=== PATIENT | female | born 1950 | race Caucasian/White ===

== ENCOUNTER 2020-07-11 09:38 | Outpatient (CLI) | payer MEDICARE, SELFPAY ==
--- NOTE | 2020-07-11 09:45 | XR_ITS ---
WS: [id number] XR KUB [id number] REASON FOR EXAM: URETERAL STONE FINDINGS: Bowel gas pattern is unremarkable. No free air or retroperitoneal air. No urinary tract calculi are identified. No mass is noted. XR/XR KUB [id number] IMPRESSION: Unremarkable abdomen.
== END 2020-07-11 09:39 | disposition home or self-care (01) ==
PROVIDERS: PCP Electrodiagnostic Medicine; Visit Provider Urology
DX: N20.1 Calculus of ureter (principal)
CPT/HCPCS: 74018; 81003

== ENCOUNTER → 2021-04-07 12:10 | Outpatient (BNVA) | payer MEDICARE, SELFPAY | PROVIDERS: PCP Electrodiagnostic Medicine; Visit Provider Obstetrics & Gynecology | DX: N39.3 Stress incontinence (female) (male) (principal); Z20.822 Contact with and (suspected) exposure to COVID-19 | CPT/HCPCS: 87635 ==

== ENCOUNTER 2021-04-12 09:15 | Observation (INO) | payer MEDICARE, SELFPAY ==
[2021-04-07 12:50] VITALS: BMI 32.8
[2021-04-07 13:34] LABS: Hematocrit 48.4 % (37.0-47.0); Hemoglobin 15.6 g/dL (11.5-15.3); Mean Corpuscular HGB Conc 32.2 g/dL (30.0-36.0); Mean Corpuscular Hemoglobin 31.1 pg (28.0-34.0); Mean Corpuscular Volume 96.6 fl (81-99); Mean Platelet Volume 12.1 fL (7.4-10.4); Platelet Count 196 10^3/cmm (130-400); Red Blood Count 5.01 10^6/uL (4.1-5.3); Red Cell Distribution Width 12.9 % (12.1-15.1); White Blood Count 7.4 10^3/uL (4.0-10.0)
[2021-04-07 16:01] LABS: Absolute Eosinophils 0.1 10^3/cmm (0.0-0.7); Absolute Segmented Neutrophil 4.8 10/cmm (1.6-7.1); Band Neutrophils Absolute 0.1 10^3/cmm (0.0-1.2); Eosinophils 2 %; Lymphocytes 21 %; Monocytes Absolute 0.7 10^3/cmm (0.1-0.6); Platelet Estimate Normal (Normal); Segmented Neutrophils 65 %; Total Cells Counted 100 (0-100)
[2021-04-12] VITALS (14 sets, daily range): BP systolic 96–182; BP diastolic 44–65; PULSE 50–77; RESP 14–18; TEMP 36.1–36.6; O2SAT 94–100
[2021-04-12] MEDS: sodium chloride 0.9% 1,000 ML 30 ML IV (06:30)
--- NOTE | 2021-04-12 06:42 | ANES.PREANE2 ---
Pre-Anesthetic Assessment Pre-Anesthetic Assessment: Height/Weight: Height 1.63 m Weight 86.636 kg Temp Pulse Resp BP Pulse Ox 97.3 F L 50 L 16 132/55 97 04/12/21 06:15 04/12/21 06:15 04/12/21 06:15 04/12/21 06:15 04/12/21 06:15 Preop Diagnosis: Cystocele stage III with uterine prolapse Proposed Procedure: Operation Date: 04/12/21 07:00 Proposed Procedures p Total Vaginal Hysterectomy 26549 [id number] 85992 N81.10 N39.3(Not Applicable) - Carlos Mcfarlane MD s bilateral Salpingo-Oophorectomy (Vaginal)(Bilateral) - Carlos Mcfarlane MD s Anterior Repair Anterior Colporrhaphy(Not Applicable) - Carlos Mcfarlane MD s Midurethral single incision sling(Not Applicable) - Carlos Mcfarlane MD Familial anesthetic complications: None Was Beta Camron taken within 24 hours: Yes Was Clonidine taken within 24 hours: N/A Last intake: Intake Last Liquid Date 04/12/21 Last Liquid Time 23:00 Last Solid Date 04/11/21 Last Solid Time 19:30 Social: Social History: Tobacco and No alcohol Exam: Pre-Anes Outpt Exam: alert, oriented x 3, clear to auscultation bilaterally and regular rate & rhythm Airway: Cervical ROM: WNL MP: 4 Dentition: False Pulmonary: Pulmonary: COPD, Cough (smoker's cough) and Sleep apnea CV/HEM: CV/HEM: Afib and HTN Comments: echo 04/23 - EF 50%, no regional wallmotion abnormalities, MPI 2018 - no ischemia Metabolic: Metabolic: Morbid obesity Anesthetic Plan: ASA status: 3 Anesthesia: General Risk of > 500 ml blood loss (7ml/kg in children): No PFSH Anesthesia PFSH: Medical History (Updated 04/11/21 @ 14:48 by Carlos Mcfarlane MD) Atrial fibrillation EKG from 10/07/2019 revealed revealed sinus bradycardia with a rate of 45 bpm. [place]-Walker grade 3 cystocele Benign essential HTN Bradycardia Chest pain Congestive heart failure COPD (chronic obstructive pulmonary disease) Cystocele Hiatal hernia High risk medication use Recto-vaginal fistula Ureteral calculus Urinary, incontinence, stress female Urolithiasis Surgical History History of cardiac radiofrequency ablation History of cholecystectomy History of tubal ligation Hx of appendectomy Family History Grandfather Diabetes maternal Grandmother Diabetes maternal Stroke maternal Family/Other Diabetes maternal uncles Breast cancer maternal aunt, onset 40's Denies family history of Colon cancer Ovarian cancer Clotting disorder Hyperlipidemia Anesthesia complication Bleeding disorder Hypertension Uterine cancer Social History Smoking and tobacco status: current every day smoker cigarettes Packs smoked per day: 1 [ Other cigarette details: smoking over 50 years ] Alcohol intake: never Marital status: / Current occupational status: retired Data Anesthesia CBC & Chem 7: 04/07/21 13:05 Cardiac Studies: No Data to Display
[2021-04-12] MEDS: enoxaparin 40 mg/0.4 mL Syringe SUBCUT (06:45)
[2021-04-12] MEDS: scopolamine 1.5 Patch 1 PATCH TRANSDERMA (06:56)
--- NOTE | 2021-04-12 06:58 | W.PM.OPSUD ---
Surgery/Procedure H&P Update DATE OF PROCEDURE: April 12, 2021 DATE H&P PERFORMED: 04/07/21 H&P UPDATE INFORMATION: I have reviewed H&P completed within last 30 days, I have examined patient prior to procedure and No changes to prior documentation PREOP DIAGNOSIS: Cystocele stage III with uterine prolapse PLANNED PROCEDURE: Operation Date: 04/12/21 07:00 Proposed Procedures p Total Vaginal Hysterectomy 68842 [id number] N81.10 N39.3(Not Applicable) - Carlos Mcfarlane MD s bilateral Salpingo-Oophorectomy (Vaginal)(Bilateral) - Carlos Mfcarlane MD s Anterior Repair Anterior Colporrhaphy(Not Applicable) - Carlos Mcfarlane MD s Midurethral single incision sling(Not Applicable) - Carlos Mcfarlane MD
[2021-04-12] MEDS: ceFOXitin 2,000 MG in sodium chloride 0.9% (plus) 50 ML 100 MG IV (07:00)
[2021-04-12 07:13] LABS: Basophils # 0.1 10^3/uL (0.0-0.1); Basophils % 0.9 %; Eosinophils # 0.4 10^3/uL (0.0-0.8); Eosinophils % 4.8 %; Hematocrit 47.7 % (37.0-47.0); Hemoglobin 15.6 g/dL (11.5-15.3); Lymphocytes # 2.3 10^3/uL (0.8-4.8); Lymphocytes % 28.7 %; Mean Corpuscular HGB Conc 32.7 g/dL (30.0-36.0); Mean Corpuscular Volume 94.8 fl (81-99); Mean Platelet Volume 12.2 fL (7.4-10.4); Monocytes % 12.1 %; Neutrophils # 4.29 10^3/uL (1.8-7.7); Neutrophils % 52.9 %; Nucleated Red Blood Cells % 0 %; Platelet Count 197 10^3/cmm (130-400); Red Blood Count 5.03 10^6/uL (4.1-5.3); White Blood Count 8.1 10^3/uL (4.0-10.0)
[2021-04-12 07:24] LABS: Add Urine Culture? No; Add Urine Microscopic? YES; Bacteria Urine 1+ /hpf; Bilirubin Urine Neg (Negative); Blood Urine Neg (Negative); Glucose Urine UA Norm (Normal); Ketones Urine Negative (Negative); Leukocyte Esterase Urine Trace (Negative); Nitrate Urine Negative (Negative); Protein Urine Neg (Negative); Squamous Epithelial Cell Urine 15-25 /hpf (0-5); Urine Appearance Clear (CLEAR); Urine Color Yellow (Yellow); Urobilinogen Urine 1 mg/dL (Negative); pH Urine 5 (5-7)
[2021-04-12 07:36] LABS: Alanine Aminotransferase 18 U/L (0-33); Albumin Level 4.1 g/dL (3.5-5.2); Alkaline Phosphatase 85 IU/L (35-105); Anion Gap 17.4 (5-19); Aspartate Amino Transferase 18 U/L (0-32); Blood Urea Nitrogen 12 mg/dL (8-23); Calcium 9.1 mg/dL (8.5-10.5); Carbon Dioxide 24 mmol/L (22-29); Chloride 105 mmol/L (98-107); Glucose 113 mg/dL (65-115); Osmolality Calculated 295 mOsm/kg (285-295); Potassium 4.4 mmol/L (3.5-5.1); Sodium 142 mmol/L (136-145); Total Bilirubin 0.3 mg/dL (0.15-1.2); Total Protein 7.1 g/dL (6.6-8.7)
[2021-04-12] MEDS: estrogens Conjugated Cream 30 gm 1 APPLIC VAGINAL (08:07)
--- NOTE | 2021-04-12 09:07 | P.OP_ITS ---
Operative Report Date of procedure: April 12, 2021 Pre-op Diagnosis: Cystocele stage III with uterine prolapse Post-op diagnosis: same Procedure Done: Total vaginal hysterectomy Anterior colporrhaphy augmented with allograft Single incision mid urethral sling Cystoscopy Implants: Altis single incision mid urethral sling Pathology: Uterus Surgeon: Carlos Mcfarlane MD Anesthesia: General Estimated blood loss (mL): 25 IV fluids (mL): 700 Urine output (mL): 100 Complications: none Condition: stable Disposition: PACU Procedure: After informed consent and risks, benefits, indications and alternatives reviewed with the patient was taken to the operating room. The patient was placed in dorsal lithotomy position prepped, and draped in the usual sterile fashion. The pre-procedure timeout verifying the correct patient, procedure, site and side, could not requirements was performed and acknowledge by the OR team. A Suarez catheter was placed. A Bookwalter vaginal retractor was placed into the vagina in usual manner visualize the cervix. Cervix was grasped with a single tooth tenaculum and circumferentially infiltrated with 2% lidocaine with epinephrine. Then cervix was circumferentially incised with bovie and the bladder was dissected off the pubovesical cervical fascia anteriorly with a sponge stick and Metzenbaum scissors. The anterior peritoneal reflection was identified and the anterior cul-de-sac was entered sharply with Metzenbaum scissors. The same procedure was performed posteriorly and a posterior colpotomy was made through the posterior cul-de-sac space without difficulty and the posterior blade of the Bookwalter vaginal retractor was advanced posteriorly into the cul-de-sac. At this time, the left and right uterosacral ligaments were isolated and ligated with 2-0 Vicryl. The Enseal device was placed over the uterosacral ligaments on either side and was then used in a serial fashion up through the cardinal ligaments bilaterally cross-clamped, cut, and sealed with the Enseal device. Finally, the uterine arteries were cross-clamped, cut, sealed and ligated with the Enseal device. Hemostasis was assured. The broad ligaments were then serially clamped, sealed and cut with the Enseal device on both sides. Excellent hemostasis was visualized. Both cornua were clamped, sealed and cut with the Enseal device. Then the pedicles were then suture ligated with excellent hemostasis. The uterus was excised and submitted for pathologic evaluation. The right ovary was identified, grasp with anu the infudibulopelvic ligament was clampped, sealed and cut with the Enseal device and the right ovary was exiced. Good hemostasis was noted. The same was performed with the left ovary without complications. No other abnormalities were noted in the pelvic cavity. The peritoneum was then closed in a pursestring fashion with 0 Vicryl suture. The vaginal cuff angles were closed with [id number] #0 Vicryl suture on both sides and transfixed with the ipsilateral cardinal and uterosacral ligaments. The remainder of the vaginal cuff was closed with 2-0 Vicryl in a running locked fashion. Then proceeded to perform the anterior colporrhaphy and single incision midurethral sling.. A vertical midline incision was made beneath the midurethra, nearly 1.5 cm length. Careful submucosal dissection was performed bilaterally up to the interior portion of the inferior pubic ramus. The insertion of adductor longus tendon on the patient?s pubic ramus was identified as reference land mallory. Palpated the notch along the internal edge of ischiopubic ramus where the adductor longus tendon and the inferior pubic ramus meet. The needle of the SIS inserted aiming at the location of this notch. One of the integrated self- fixating tips place onto the needle by sliding it over the end of the needle. The needle/sling assembly was inserted toward the location of identified reference notch making sure that the flat of the handle is perpendicular to the desired path. The needle was tracked along the posterior surface of the ischiopubic ramus until the midline mallory on the mesh is approximately at the midline position under the urethra. The needle was removed and the same was repeated on the contralateral side until the appropriate sling tension under the urethra was achieved ensuring that the mesh lays flat. The needle was removed and vaginal incision was closed in a running interlocking fashion with 2-0 Vicryl. Then the vaginal mucosa was then injected in the midline with normal saline. The vaginal mucosa was scored in the midline with the Bovie approximately 1 cm medial to the urethral meatus to 1 cm distal to the vaginal cuff. This vaginal mucosa was then undermined and then incised in the midline with the Metzenbaum scissors. The lateral aspects of the vaginal mucosa were then grasped with the Allis clamps and the vaginal mucosa was then dissected off the underlying fascia with the Metzenbaum scissors. Again, there was noted to be quite a bit of oozing at the incision, which was controlled with cautery. After adequate dissection was performed, bilaterally. A Coloplast allograft was modified at time of application to fit spacea, 3 x 3 cm piece . The allograft was placed in front of cystocele ready to be implanted and was suture is placed at distal end of graft and placed towards vaginal cuff. Final suture is placed on proximal portion of the graft to complete the placement overlying the bladder. Then Interrupted vertical mattress sutures of 0 Vicryl were used to elevate the cystocele superiorly. The excessive vaginal mucosa was then trimmed with the Metzenbaum scissors and the vaginal mucosa was then reapproximated in the running interlocking fashion with 2-0 Vicryl. Then the Suarez catheter was removed and cystoscope was inserted. The bladder was filled with sterile water. Complete evaluation of the bladder mucosa was performed noting no lacerations, dimpling, tears, bleeding of the mucosa or muscular layers. Both ureteral orifices were identified. Prompt excretion of u rine from both ureteral orifices was noted. Cystoscope was withdrawn. Suarez catheter was then placed yielding clear nohemi urine. A vaginal packing with Premarin cream was placed and the patient was taken out of dorsal lithotomy position and awakened from the general anesthesia. The patient tolerated the procedure well and was taken to the PACU recovery room in a stable condition. Sponge, lap, needle and instruments counts were correct x3.
--- NOTE | 2021-04-12 09:32 | P.PCN_ITS ---
PACU note PACU note: VSS, Good respiratory effort, report to SPANISHER Post-Anesthesia Exam: awake
--- NOTE | 2021-04-12 09:32 | PM.PACU ---
PACU note PACU note: VSS, Good respiratory effort, report to SECURITY OFFICER SUPERVISOR Post-Anesthesia Exam: awake
[2021-04-12] MEDS: HYDROcodone-acetaminophen 5-325 mg Tablet PO ×2 (10:39→16:41)
[2021-04-12] MEDS: dextrose 5%-lactated ringers 1,000 ML 125 ML IV (10:40)
--- NOTE | 2021-04-12 14:00 | ANE.PACU2 ---
Inpatient post-anesthesia follow up: Airway intact: Yes Vital signs: Temperature 97.0 F Pulse Rate 58 Respiratory Rate 18 Blood Pressure 147/65 Pulse Oximetry 94 Oxygen Delivery Me thod Room Air Oxygen Flow Rate 6 Fraction of Inspir ed Oxygen Hydration adequate: Yes Nausea and vomiting: No Pain level: 1 Mental status: Baseline
[2021-04-12] MEDS: docusate sodium 100 mg Capsule PO (18:18)
[2021-04-12] MEDS: metoprolol tartrate 25 mg Tablet 37.5 MG PO (18:19)
[2021-04-13 05:15] LABS: Hematocrit 39.8 % (37.0-47.0); Hemoglobin 12.7 g/dL (11.5-15.3); Mean Corpuscular HGB Conc 31.9 g/dL (30.0-36.0); Mean Corpuscular Hemoglobin 30.5 pg (28.0-34.0); Mean Corpuscular Volume 95.7 fl (81-99); Platelet Count 167 10^3/cmm (130-400); Red Blood Count 4.16 10^6/uL (4.1-5.3); Red Cell Distribution Width 12.8 % (12.1-15.1); White Blood Count 13.8 10^3/uL (4.0-10.0)
[2021-04-13 05:16] VITALS: BP 176/64; PULSE 58; RESP 16; TEMP 36.4
--- NOTE | 2021-04-13 10:55 | PM.OBGYDC ---
Discharge Providers QUALITY MEASUREMENT SPECIALIST Date of Admission: 04/12/21 09:15 Date of Discharge: 04/13/21 Attending Provider at Admission: Carlos Mcfarlane MD Attending Provider at Discharge: Carlos Mcfarlane MD Primary Care Provider: Malachi Haque DO Diagnoses at Discharge Discharge Diagnosis (1) Status post vaginal hysterectomy: Status: Acute Reason for Visit Reason for Visit: the [facility] Hospital Course Hospital Course Mrs. Roberts 70-year-old female with a cystocele stage III with uterine prolapse was admitted for planned total vaginal hysterectomy, anterior colporrhaphy augmented with allograft and single incision mid urethral sling. The procedures were performed without complications. Overnight observation uneventful. Postop day 1 she is afebrile and hemodynamically stable. Tolerating diet well. Passing flatus, ambulating without difficulty. PVR within normal limits. Physical Exam Narrative: EXAM NARRATIVE: GA: Alert and oriented ?3. HEENT: WNL. Heart: Regular rate and rhythm. Lungs: Clear to auscultation bilaterally. Abdomen: Bowel sounds present, nontender. COOLING SYSTEM OPERATOR: sotting bleeding. Extremities: No edema, no cyanosis, no calves pain. Urinary Catheter Management^: Suarez: Cath Placed During This Visit: yes, but has since been removed by the nurse Reason for Continuing Indwelling Catheter: Decision to DC Catheter Urinary Catheter Date of Insertion: 04/12/21 Urinary Catheter Time of Insertion: 07:31 Date Urinary Catheter Removed: 04/13/21 Time Urinary Catheter Discontinued: 05:09 Discharge Data Data Completed and Pending: Pending at discharge Category Date Time Status Retype for Patiisatu s ABO/Rh Routine Lab 04/12/21 07:49 Received Pathology: Surgic al [PTH] Routine Pth 04/12/21 08:56 Received Labs from last 24 hours 04/13/21 05:05 WBC 13.8 H RBC 4.16 Hgb 12.7 Hct 39.8 MCV 95.7 MCH 30.5 MCHC 31.9 RDW 12.8 Plt Count 167 MPV 12.0 H Vitals: Last Vital Signs Temp 97.6 F 04/13/21 05:16 Pulse 58 L 04/13/21 05:16 Resp 16 04/13/21 05:16 BP 176/64 04/13/21 05:16 Pulse Ox 95 04/12/21 17:16 Discharge Plan Discharge Patient Disposition: Home Condition: Stable Prescriptions: New ibuprofen 800 mg tablet 800 mg PO TID PRN (Reason: pain) Qty: 60 RF: 0 acetaminophen 325 mg capsule 325 mg PO Q4H PRN (Reason: fever or pain) Qty: 60 RF: 0 Continued Breo Ellipta 100-25 mcg/dose blister with device 1 inh inhalation DAILY RF: 0 Eliquis 5 mg tablet 5 mg PO BID RF: 0 loratadine [Claritin] 10 mg tablet 10 mg PO DAILY RF: 0 cholecalciferol (vitamin D3) [D3-50 Cholecalciferol] 1,250 mcg (50,000 unit) capsule 1,250 mcg PO .twice a week RF: 0 sertraline 25 mg tablet 50 mg PO DAILY RF: 0 ascorbate calcium (vitamin C) 500 mg tablet 1 g PO DAILY RF: 0 Adult 50 Plus Probiotic 4 billion cell capsule 4,000 mmu cells PO DAILY RF: 0 vitamin B complex-vit B12 1,200 mcg/mL drops 1 drp sublingual DAILY RF: 0 dietary supplement Capsule See Rx Instructions PO .COMPLEX RF: 0 losartan 50 mg tablet 50 mg PO DAILY Qty: 90 RF: 3 enoxaparin [Lovenox] 40 mg/0.4 mL syringe 40 mg SUBCUT .COMPLEX Qty: 0.4 RF: 5 metoprolol tartrate 25 mg tablet See Rx Instructions .ROUTE .COMPLEX Qty: 270 RF: 3 Discharge Orders: Discharge Order (Routine); Ordered 04/13/21 Ordered By: Carlos Mcfarlane Referrals: Carlos Mcfarlane MD [Physician] - 2 weeks Discharge Diet: Usual diet Discharge Activity: Increase activity as tolerated Patient Instructions: Vaginal Hysterectomy (DC), Anterior Vaginal Repair (DC), Bladder Sling Procedures (DC), OB Discharge Report, OB Laproscopic Surgery - [facility], Opioid Safety Activity Restrictions/Additional Instructions: 1. Please call [facility] on next working day to make your post-operative appointment in 2 weeks. 2. Please stay home until you come back to the clinic on first post-operative check up. 3. Please follow instructions on your medications CAREFULLY. 4. If you have abdominal incision, do not cover it unless dressing is necessary because of drainage. OK to shower, but avoid bath. Leave steri-strips until they fall off. If they are still on one week after surgery, you may remove them. 5. If you had vaginal surgery or vaginal repair, Dr. Mcfarlane may instruct you to take SITZ bath. 6. Yellow, blood tinged odorous vaginal discharge is usually normal after hysterectomy or vaginal surgeries. 7. No sexual intercourse, tampons, or douches until you are completely released from the post-operative care. 8. Avoid constipation by eating right and maybe using some Metamucil or Milk of Magnesia. 9. All prescription refills are given during the working hours. Please do no wait till it runs out. Call the clinic at [phone] before your medication runs out. The clinic will get in touch with your doctor to prescribe medications if necessary. 10. Please remain within 40 mile radius from our hospital because emergencies do happen now and then during the post-operative period. 11. If you have stairs at home, take one step at a time slowly and minimize the number of trips. It helps to stay in one floor for the next few days. No lifting except what you can lift by one hand until you are released from the post-operative care. 12. Driving is discouraged until you are well healed. It may be 3-4 weeks before you feel strong enough to drive. You should be able to turn and look through the rear window without pain and you should be able to push the brake pedal very hard without pain before you drive. No fast rules, but SAFETY should be your primary concern. DO NOT drive if you are on sedating medications such as narcotics. 13. Call the clinic (during working hours) to make urgent appointment or go to the Emergency room, if any of the following occurs: i. Vaginal bleeding becomes heavy, more than a period. ii. Incision becomes red and sore, or drains pus. iii. Your temperature is over 100.4 or you have chill. iv. IV site becomes red and swollen (a little ``knot?? is usually OK) v. Persistent nausea and vomiting vi. Persistent constipation or diarrhea vii. Rash or allergic reaction to medications. Discharge Attestations QUALITY MEASUREMENT SPECIALIST Time Spent in Discharge Care*: greater than 30 min Coding Level of Care Code Acute In Flight Refueling Manager for Thaddeus Juarez Diagnoses Status post vaginal hysterectomy Z90.710
[2021-04-13 11:15] VITALS: BP 134/51; PULSE 56; RESP 17; TEMP 36.5; O2SAT 98
--- NOTE | 2021-04-14 18:16 | PC.RESP ---
SMOKING CESSATION AND PULMONARY REHAB INFORMATION SENT TO PATIENT.
== END 2021-04-13 11:15 | disposition home or self-care (01) ==
LOC: OBGYN 09:16
PROVIDERS: Admitting Provider Obstetrics & Gynecology; PCP Electrodiagnostic Medicine; Visit Provider Obstetrics & Gynecology
PROC: (CPT 57240; principal; 2021-04-12 07:00)
PROC: 0JQC0ZZ Repair Pelvic Region Subcutaneous Tissue and Fascia, Open Approach (ICD-10-PCS; CPT 57240; 2021-04-12 07:00)
PROC: (CPT 57288; 2021-04-12 07:00)
PROC: 0TJB8ZZ Inspection of Bladder, Via Natural or Artificial Opening Endoscopic (ICD-10-PCS; CPT 52000; 2021-04-12 07:00)
DX: N81.4 Uterovaginal prolapse, unspecified (principal); J44.9 Chronic obstructive pulmonary disease, unspecified; G47.30 Sleep apnea, unspecified; I48.91 Unspecified atrial fibrillation; E66.01 Morbid (severe) obesity due to excess calories; Z68.32 Body mass index [BMI] 32.0-32.9, adult; I11.0 Hypertensive heart disease with heart failure; I50.9 Heart failure, unspecified; F17.210 Nicotine dependence, cigarettes, uncomplicated
CPT/HCPCS: 57240; 57288; 58260; 36415; 51798; 80053; 81001; 85007; 85025; 85027; 86850; 86900; 88305; 96365; 96372; C1713; C1762; G0378; J0694; J1100; J1650; J1885; J1940; J2405; J2704; J2710; J3010; J3490; J7030; Q9968

== ENCOUNTER → 2022-01-31 15:44 | Outpatient (BNVA) | payer MEDICARE, SELFPAY | PROVIDERS: PCP Electrodiagnostic Medicine; Visit Provider Internal Medicine Cardiovascular Disease | DX: I11.0 Hypertensive heart disease with heart failure (principal); I50.31 Acute diastolic (congestive) heart failure; M79.606 Pain in leg, unspecified; I48.19 Other persistent atrial fibrillation; R09.89 Other specified symptoms and signs involving the circulatory and respiratory systems; F17.210 Nicotine dependence, cigarettes, uncomplicated; Z79.01 Long term (current) use of anticoagulants | CPT/HCPCS: 99214 ==

== ENCOUNTER 2022-05-02 17:10 | Outpatient (CLI) | payer MEDICARE, SELFPAY ==
--- NOTE | 2022-05-02 17:15 | USCV_ITS ---
Priyanka Roberts Age: 71 Gender: F : 1950 Exam Date: 05/02/2022 17:22 Ordering Phys: Soren Duong MD ([email or web address]) Technologist: LALO [place] [facility] [place]: CAROTID BRUIT Risk Factors: Previous Vascular Surgery: Right Brachial BP: / Left Brachial BP: / Right Left Velocity (cm/s) Spectral Plaque Velocity (cm/s) Spectral Plaque Syst/Diast Broadening Syst/Diast Broadening 100.80/12.00 Prox CCA 84.60 / 15.40 76.90/ 11.70 Mid CCA 61.50 / 9.40 61.40/ 15.50 Distal CCA 70.10 / 15.40 71.50/ 18.60 Prox ICA 101.20/ 28.90 47.30/ 13.10 Mid ICA 79.20 / 17.10 54.60/ 15.10 Distal ICA 101.00/ 21.00 97.10 ECA 156.40 0.71 ICA/CCA 1.20 Vertebral 54.60/ 12.50 cm/s 44.00/ 8.50 cm/s Subclavian 266.1 219.6 0 0 FINDINGS Comparison: none available. No significant elevation of systolic or diastolic velocities. Waveforms are normal. Mild atherosclerotic plaque in the bifurcations. Antegrade vertebral arteries. CONCLUSIONS Bilateral ICA stenosis less than 50%. Mild carotid atherosclerosis. Dr. Dior Armenta DO (Electronically Signed) Final Date: 03 May 2022 07:42 S
== END 2022-05-02 17:11 | disposition home or self-care (01) ==
LOC: RAD 17:14
PROVIDERS: PCP Electrodiagnostic Medicine; Visit Provider Internal Medicine Cardiovascular Disease
DX: I65.23 Occlusion and stenosis of bilateral carotid arteries (principal); M79.669 Pain in unspecified lower leg
CPT/HCPCS: 93880

== ENCOUNTER 2022-05-08 11:53 | Outpatient (CLI) | payer MEDICARE, SELFPAY ==
--- NOTE | 2022-05-08 12:00 | USCV_ITS ---
Priyanka Roberts Age: 71 Gender: F : 1950 Exam Date: 05/08/2022 12:22 Ordering Phys: Soren Duong MD ([email or web address]) Technologist: SABIHA [facility] [place] Indication: Numbness big toes Risk Factors: Smoker Previous Vascular Surgery: None RIGHT LEFT BP: 132.0 / 62.00 BP: 144.0/ 54.00 0 0 Waveform Velocity (cm/s) Velocity (cm/s) Waveform Biphasic 117.1 Iliac Prox 66.1 Monophasic Biphasic 97.4 Iliac Mid 75.3 Monophasic Biphasic 147.4 Iliac Distal 68.7 Monophasic Biphasic 93.9 PROFILE TRIMMER 76.7 Monophasic Biphasic 93.9 SFA Prox 50.2 Monophasic Biphasic SFA Mid Monophasic 86.3 58.9 Biphasic 69.2 SFA Dist 49.4 Monophasic Biphasic 64.5 POP 58.1 Monophasic Monophasic 75.3 DIAL SCREW ASSEMBLER 28.3 Monophasic Monophasic 66.1 DPA 21.8 Monophasic 0.8 SHREYA 0.4 FINDINGS rt dpa 90 rt vessel captain 110 ltdpa 40 lt vessel captain 60 Mild to moderate diffuse plaques in the SFA on the right side. Resting SHREYA of 0.8 on the right side. Mild to moderate diffuse plaque in the SFA and popliteal artery on the left side. Resting SHREYA of 0.4 on the left side CONCLUSIONS Abnormal resting SHREYA 0.4 on the left side, suggesting severe peripheral artery disease, possibly at the aortoiliac level. Minimally diminished resting SHREYA 0.8 on the right side, suggesting mild peripheral artery disease. No similar previous studies are available for comparison Dr Soren Duong MD [facility] (Electronically Signed) Final Date: 08 May 2022 13:56 S
== END 2022-05-08 11:54 | disposition home or self-care (01) ==
PROVIDERS: PCP Electrodiagnostic Medicine; Visit Provider Internal Medicine Cardiovascular Disease
DX: M79.604 Pain in right leg (principal); M79.605 Pain in left leg; R20.0 Anesthesia of skin; F17.210 Nicotine dependence, cigarettes, uncomplicated
CPT/HCPCS: 93925

== ENCOUNTER → 2022-09-13 14:00 | Outpatient (BNVA) | payer MEDICARE, SELFPAY | PROVIDERS: PCP Electrodiagnostic Medicine; Visit Provider Internal Medicine Cardiovascular Disease | DX: I77.9 Disorder of arteries and arterioles, unspecified (principal); I48.19 Other persistent atrial fibrillation; I11.0 Hypertensive heart disease with heart failure; I50.31 Acute diastolic (congestive) heart failure; Z79.899 Other long term (current) drug therapy; F17.210 Nicotine dependence, cigarettes, uncomplicated | CPT/HCPCS: 99214 ==

== ENCOUNTER 2022-10-03 17:10 | Emergency (ER) | payer MEDICARE, SELFPAY ==
[2022-10-03 17:34] VITALS: BP 128/65; PULSE 67; RESP 20; TEMP 36.9; O2SAT 96; BMI 30.9
[2022-10-03 18:36] LABS: Basophils # 0.1 10^3/uL (0.0-0.1); Basophils % 0.7 %; Eosinophils # 0.2 10^3/uL (0.0-0.8); Eosinophils % 2.5 %; Hematocrit 42.8 % (37.0-47.0); Hemoglobin 13.7 g/dL (11.5-15.3); Lymphocytes # 1.6 10^3/uL (0.8-4.8); Lymphocytes % 18.8 %; Mean Corpuscular Hemoglobin 29.8 pg (28.0-34.0); Mean Corpuscular Volume 93.2 fl (81-99); Mean Platelet Volume 11.7 fL (7.4-10.4); Monocytes # 0.9 10^3/uL (0.2-0.9); Monocytes % 10.3 %; Neutrophils % 67.1 %; Nucleated Red Blood Cells % 0 %; Platelet Count 249 10^3/cmm (130-400); Red Blood Count 4.59 10^6/uL (4.1-5.3); Red Cell Distribution Width 13.8 % (12.1-15.1); White Blood Count 8.7 10^3/uL (4.0-10.0)
[2022-10-03 18:57] LABS: Alanine Aminotransferase 16 U/L (0-33); Albumin Level 4.4 g/dL (3.5-5.2); Alkaline Phosphatase 89 U/L (35-105); Anion Gap 17.3 (5-19); Aspartate Amino Transferase 18 U/L (0-32); Blood Urea Nitrogen 17 mg/dL (8-23); Calcium 9.6 mg/dL (8.5-10.5); Carbon Dioxide 24 mmol/L (22-29); Chloride 105 mmol/L (98-107); Creatinine Clr Calc Pharmacy 63.7736; Globulin 2.5 g/dL (1.3-4.6); Glucose 120 mg/dL (65-115); Lipase 21 U/L (13-60); Osmolality Calculated 297 mOsm/kg (285-295); Potassium 4.3 mmol/L (3.5-5.1); Sodium 142 mmol/L (136-145); Total Bilirubin 0.2 mg/dL (0.15-1.2); Total Protein 6.9 g/dL (6.6-8.7)
--- NOTE | 2022-10-03 20:38 | CTR_ITS ---
PROCEDURE INFORMATION: Exam: CT Abdomen And Pelvis Without Contrast Exam date and time: 10/03/2022 9:28 PM Age: 72 years old Clinical indication: Abdominal pain; Acute; Prior surgery; Surgery date: 6+ months; Surgery type: Dorcas, tubal, appx TECHNIQUE: Imaging protocol: Computed tomography of the abdomen and pelvis without contrast. Radiation optimization: All CT scans at this facility use at least one of these dose optimization techniques: automated exposure control; mA and/or kV adjustment per patient size (includes targeted exams where dose is matched to clinical indication); or iterative reconstruction. REPORTING DATA: Count of CT and Cardiac NM exams in prior 12 months: This patient has received 0 known CTs and 0 known cardiac nuclear medicine studies in the 12 months prior to the current study. COMPARISON: CT kidney stone [id number] 05/31/2019 5:38 AM RADIATION DOSE METRICS: Total DLP (mGy-cm): 739.25 FINDINGS: Liver: Normal. No mass. Gallbladder and bile ducts: Cholecystectomy. Pancreas: Normal. No ductal dilation. Spleen: Normal. No splenomegaly. Adrenal glands: Right adrenal 16 mm low-density nodule suggestive of a benign adenoma. Kidneys and ureters: Left kidney punctate benign parenchymal calcification. Stomach and bowel: Prominent fluid-filled loops of bowel in the right abdomen with possible wall thickening, perhaps reflecting an enteritis in the appropriate clinical setting. Diverticulosis without diverticulitis. Appendix: No evidence of appendicitis. Intraperitoneal space: Unremarkable. No free air. No significant fluid collection. Vasculature: Unremarkable. No abdominal aortic aneurysm. Lymph nodes: Unremarkable. No enlarged lymph nodes. Urinary bladder: Unremarkable as visualized. Reproductive: Unremarkable as visualized. Bones/joints: Unremarkable. No acute fracture. Soft tissues: Unremarkable. CT/CT kidney stone [id number] IMPRESSION: 1. Prominent fluid-filled loops of bowel in the right abdomen with possible wall thickening, perhaps reflecting an enteritis in the appropriate clinical setting. 2. Cholecystectomy. 3. Right adrenal 16 mm low-density nodule suggestive of a benign adenoma. 4. Left kidney punctate benign parenchymal calcification. 5. Diverticulosis without diverticulitis. COMMENTS: Consistent with the [employer]'s Incidental Findings Committee white paper (J Am Desirae Radiol 2017): For any incidental adrenal lesion greater than or equal to 1 cm but less than or equal to 4 cm classified in this report as benign, likely benign, or containing fat (including classification as an adenoma or myelolipoma), no follow-up imaging is recommended per consensus recommendations based on imaging criteria. Further lab evaluation could be pursued if warranted based on clinical findings.
--- NOTE | 2022-10-03 20:39 | W.ED.ABDPA2 ---
HPI - Abdominal Pain General: Chief Complaint: Abdominal Pain Stated Complaint: rt l back pain Time Seen by Provider: 10/03/22 20:04 Source: patient Mode of arrival: ambulatory Limitations: no limitations History of Present Illness: 72-year-old female states she been having back pain has been intermittent over the last 3 days she states that she is waves of pain that will be sharp and severe in nature and then resolved states her pain is currently improved states she has had kidney stones she is concerned about a kidney stone or she states she could be having muscle spasms denies any fever denies any dysuria denies any lower extremity weakness. Associated Symptoms: Denies chills, diarrhea, fever(s), nausea and vomiting Review of Systems Const: Denies: fever(s), chills, body aches or change in appetite Eyes: Denies: blurry vision or eye discomfort ENMT: Denies: throat pain or dental pain Card: Denies: chest pain Resp: Denies: dyspnea GI: Denies: abdominal pain, nausea, vomiting or diarrhea : Reports: flank pain Musc: Denies: neck pain or back pain Skin/Breast: Denies: rash Neuro: Denies: headache(s) Psych: Denies: depression Sánchez/Lymph: Denies: easy bruising All/Imm: Denies: urticaria PFSH ED PFSH: Medical History Atrial fibrillation EKG from 10/07/2019 revealed revealed sinus bradycardia with a rate of 45 bpm. [place]-Walker grade 3 cystocele Benign essential HTN Bradycardia Chest pain Congestive heart failure COPD (chronic obstructive pulmonary disease) Cystocele Hiatal hernia High risk medication use Recto-vaginal fistula Ureteral calculus Urinary, incontinence, stress female Urolithiasis Surgical History History of cardiac radiofrequency ablation History of cholecystectomy History of tubal ligation Hx of appendectomy Family History Grandfather Diabetes maternal Grandmother Diabetes maternal Stroke maternal Family/Other Diabetes maternal uncles Breast cancer maternal aunt, onset 40's Denies family history of Colon cancer Ovarian cancer Clotting disorder Hyperlipidemia Anesthesia complication Bleeding disorder Hypertension Uterine cancer Social History Smoking and tobacco status: current every day smoker cigarettes Packs smoked per day: 1 [ Other cigarette details: smoking over 50 years] Alcohol intake: never Marital status: / Physical Exam Const: COMMON NORMALS: no acute distress, patient oriented x3 and healthy appearing HENMT: COMMON NORMALS: normocephalic and atraumatic HEAD & SCALP: normocephalic and atraumatic Eye: COMMON NORMALS: Equal, round and reactive pupils present and EOMs intact bilaterally PUPIL: Yes Equal, round and reactive pupils present Neck/C-Spine: COMMON NORMALS: full ROM and supple Chest: COMMONS NORMALS: normal inspection of the chest and normal palpation of entire chest wall Resp: COMMON NORMALS: normal respiratory effort, No retractions, No use of accessory muscles and clear to auscultation bilaterally AUSCULTATION: clear to auscultation bilaterally Cardio: COMMON NORMALS: regular rate, regular rhythm and No murmurs present (Cardio) RATE: regular rate RHYTHM: regular rhythm GI: COMMON NORMALS: Normal to inspection, nondistended, normoactive bowel sounds present, Soft to palpation, non-tender and no masses PALPATION: Yes Soft to palpation Extremity: COMMON NORMALS: normal to inspection and full ROM Neuro: COMMON NORMALS: patient oriented x3, moves all extremities and no focal motor deficits Psych: COMMON NORMALS: mental status grossly normal, Normal thought process present and cooperative THOUGHT PROCESS: Normal thought process present Skin: COMMON NORMALS: no rashes or lesions noted and no wounds GENERAL SKIN EXAM: no rashes or lesions noted Course Vital Signs: Vital signs: Vital Signs Temperature 98.4 F 10/03/22 17:34 Pulse Rate 75 10/03/22 21:16 Respiratory Rate 18 10/03/22 21:19 Blood Pressure 186/72 10/03/22 21:16 Pulse Oximetry 100 10/03/22 21:19 Oxygen Delivery Me thod 10/03/22 21:16 MDM - Abdominal Pain Medical Decision Making Patient presents for some back pain could be muscle spasms could be some pain from her enteritis is seen on CT scan no kidney stone her blood work here is normal urinalysis is normal she is well-appearing here she is stable for discharge she is to follow-up with PCP and return if worsening. Lab Data 10/03/22 18:15 10/03/22 18:15 Labs/Radiology: Radiology Impressions Abdomen/Pelvis CT 10/03/22 20:38 IMPRESSION: 1. Prominent fluid-filled loops of bowel in the right abdomen with possible wall thickening, perhaps reflecting an enteritis in the appropriate clinical setting. 2. Cholecystectomy. 3. Right adrenal 16 mm low-density nodule suggestive of a benign adenoma. 4. Left kidney punctate benign parenchymal calcification. 5. Diverticulosis without diverticulitis. COMMENTS: Consistent with the [place] [employer]'s Incidental Findings Committee white paper (J Am Desirae Radiol 2017): For any incidental adrenal lesion greater than or equal to 1 cm but less than or equal to 4 cm classified in this report as benign, likely benign, or containing fat (including classification as an adenoma or myelolipoma), no follow-up imaging is recommended per consensus recommendations based on imaging criteria. Further lab evaluation could be pursued if warranted based on clinical findings. Laboratory Results WBC 8.7 10^3/uL (4.0-10.0) 10/03/22 18:15 RBC 4.59 10^6/uL (4.1-5.3) 10/03/22 18:15 Hgb 13.7 g/dL (11.5-15.3) 10/03/22 18:15 Hct 42.8 % (37.0-47.0) 10/03/22 18:15 MCV 93.2 fl (81-99) 10/03/22 18:15 MCH 29.8 pg (28.0-34.0) 10/03/22 18:15 MCHC 32.0 g/dL (30.0-36.0) 10/03/22 18:15 RDW 13.8 % (12.1-15.1) 10/03/22 18:15 Plt Count 249 10^3/cmm (130-400) 10/03/22 18:15 MPV 11.7 fL (7.4-10.4) H 10/03/22 18:15 Neut % (Auto) 67.1 % 10/03/22 18:15 Lymph % (Auto) 18.8 % 10/03/22 18:15 [place] % (Auto) 10.3 % 10/03/22 18:15 Eos % (Auto) 2.5 % 10/03/22 18:15 Baso % (Auto) 0.7 % 10/03/22 18:15 Neut # (Auto) 5.80 10^3/uL (1.8-7.7) 10/03/22 18:15 Lymph # (Auto) 1.6 10^3/uL (0.8-4.8) 10/03/22 18:15 [place] # (Auto) 0.9 10^3/uL (0.2-0.9) 10/03/22 18:15 Eos # (Auto) 0.2 10^3/uL (0.0-0.8) 10/03/22 18:15 Baso # (Auto) 0.1 10^3/uL (0.0-0.1) 10/03/22 18:15 Nucleated RBC % (auto) 0 % 10/03/22 18:15 Nucleated RBCs # 0.0 /100WBC 10/03/22 18:15 PT 15.10 SECONDS (12.1-14.9) H 10/03/22 18:14 INR 1.15 (0.8-1.2) 10/03/22 18:14 Sodium 142 mmol/L (136-145) 10/03/22 18:15 Potassium 4.3 mmol/L (3.5-5.1) 10/03/22 18:15 Chloride 105 mmol/L (98-107) 10/03/22 18:15 Carbon Dioxide 24 mmol/L (22-29) 10/03/22 18:15 Anion Gap 17.3 (5-19) 10/03/22 18:15 BUN 17 mg/dL (8-23) 10/03/22 18:15 Creatinine 0.8 mg/dL (0.5-0.9) 10/03/22 18:15 GFR Calculation Not Reportable 10/03/22 18:15 Glucose 120 mg/dL (65-115) H 10/03/22 18:15 Calculated Osmolality 297 mOsm/kg (285-295) H 10/03/22 18:15 Calcium 9.6 mg/dL (8.5-10.5) 10/03/22 18:15 Total Bilirubin 0.2 mg/dL (0.15-1.2) 10/03/22 18:15 AST 18 U/L (0-32) 10/03/22 18:15 ALT 16 U/L (0-33) 10/03/22 18:15 Alkaline Phosphatase 89 U/L (35-105) 10/03/22 18:15 Total Protein 6.9 g/dL (6.6-8.7) 10/03/22 18:15 Albumin 4.4 g/dL (3.5-5.2) 10/03/22 18:15 Globulin 2.5 g/dL (1.3-4.6) 10/03/22 18:15 Lipase 21 U/L (13-60) 10/03/22 18:15 Urine Color Yellow (Yellow) 10/03/22 21:27 Urine Appearance Clear (CLEAR) 10/03/22 21:27 Urine pH 5 (5-7) 10/03/22 21:27 Ur Specific [place] 1.025 (1.005-1.030) 10/03/22 21:27 Urine Protein Neg (Negative) 10/03/22 21:27 Urine Glucose (UA) Norm (Normal) 10/03/22 21:27 Urine Ketones Negative (Negative) 10/03/22 21:27 Urine Blood Neg (Negative) 10/03/22 21:27 Urine Nitrate Negative (Negative) 10/03/22 21:27 Urine Bilirubin Neg (Negative) 10/03/22 21:27 Urine Urobilinogen Norm mg/dL (Negative) 10/03/22 21:27 Ur Leukocyte Esterase Negative (Negative) 10/03/22 21:27 Discharge Plan Discharge Patient Disposition: Home Clinical Impression: Abdominal pain Condition: Stable Prescriptions: New hydrocodone-acetaminophen 5-325 mg tablet 1 tab PO Q6H PRN (Reason: pain) Qty: 14 0RF ondansetron 4 mg tablet,disintegrating 4 mg PO Q6H PRN (Reason: nausea and vomiting) Qty: 14 0RF No Action Breo Ellipta 100-25 mcg/dose blister with device 1 inh inhalation DAILY Eliquis 5 mg tablet 5 mg PO BID loratadine [Claritin] 10 mg tablet 10 mg PO DAILY sertraline 25 mg tablet 50 mg PO DAILY cholecalciferol (vitamin D3) [D3-50 Cholecalciferol] 1,250 mcg (50,000 unit) capsule 1,250 mcg PO DAILY ascorbate calcium (vitamin C) 500 mg tablet 1 g PO DAILY Adult 50 Plus Probiotic 4 billion cell capsule 4,000 mmu cells PO DAILY Rx Instructions: administer with a meal albuterol sulfate 90 mcg/actuation HFA aerosol inhaler inhalation vitamin B complex-vit B12 1,200 mcg/mL drops 1 drp sublingual DAILY cilostazol 100 mg tablet 100 mg PO BID Qty: 180 3RF metoprolol tartrate 25 mg tablet 37.5 mg PO BID Qty: 270 3RF losartan 50 mg tablet 50 mg PO DAILY Qty: 90 3RF Rx Instructions: Dose reduced; unable to tolerate 100mg ibuprofen 800 mg tablet 800 mg PO TID PRN (Reason: pain) Qty: 60 0RF acetaminophen 325 mg capsule 325 mg PO Q4H PRN (Reason: fever or pain) Qty: 60 0RF Discharge Orders: Discharge ED (Routine); Ordered 10/03/22 Ordered By: Jareth Huber Referrals: Malachi Haque DO [Primary Care Provider] - 1-3 days Discharge Diet: Advance as tolerated Discharge Activity: Resume usual activity Patient Instructions: Abdominal Pain (ED), Opioid Safety Coding Level of Care Code ED Editor Publications for Thaddeus Juarez
[2022-10-03 21:00] LABS: INR 1.15 (0.8-1.2)
[2022-10-03 21:16] VITALS: BP 186/72; PULSE 75; RESP 18; O2SAT 97
[2022-10-03 21:19] VITALS: RESP 18; O2SAT 100
[2022-10-03] MEDS: morphine 4 mg/mL SDV 1 mL IVP (21:19)
[2022-10-03] MEDS: sodium chloride 0.9% 1,000 ML 999 ML IV (21:19)
[2022-10-03] MEDS: ondansetron 2 mg/ML SDV 2 mL 4 MG IVP (21:20)
[2022-10-03 21:29] LABS: Add Urine Microscopic? NO; Charge for UA Resulting for Rev
[2022-10-03 22:30] LABS: Bilirubin Urine Neg (Negative); Blood Urine Neg (Negative); Glucose Urine UA Norm (Normal); Ketones Urine Negative (Negative); Leukocyte Esterase Urine Negative (Negative); Nitrate Urine Negative (Negative); Protein Urine Neg (Negative); Specific Gravity, Urine 1.025 (1.005-1.030); Urine Appearance Clear (CLEAR); Urine Color Yellow (Yellow); Urobilinogen Urine Norm (Negative); pH Urine 5 (5-7)
[2022-10-03] MEDS: HYDROcodone-acetaminophen 5-325 mg Tablet 1 TAB PO (23:09)
[2022-10-03 23:11] VITALS: BP 133/66; PULSE 72; RESP 18; O2SAT 96
== END 2022-10-03 23:15 | disposition home or self-care (01) ==
PROVIDERS: Emergency Provider Emergency Medicine; PCP Electrodiagnostic Medicine
DX: R10.9 Unspecified abdominal pain (principal); Z79.01 Long term (current) use of anticoagulants; K57.90 Diverticulosis of intestine, part unspecified, without perforation or abscess without bleeding
CPT/HCPCS: 36415; 74176; 80053; 81003; 83690; 85025; 85610; 96361; 96374; 96375; 99285; J2270; J2405; J7030

== ENCOUNTER → 2022-10-18 13:45 | Outpatient (BNVA) | payer MEDICARE, SELFPAY | PROVIDERS: PCP Electrodiagnostic Medicine; Visit Provider Internal Medicine Cardiovascular Disease | DX: I48.19 Other persistent atrial fibrillation (principal) | CPT/HCPCS: 93242 ==

== ENCOUNTER → 2023-01-08 13:35 | Outpatient (BNVA) | payer MEDICARE, SELFPAY | PROVIDERS: PCP Electrodiagnostic Medicine; Visit Provider Nurse Practitioner Family | DX: I77.9 Disorder of arteries and arterioles, unspecified (principal); I11.0 Hypertensive heart disease with heart failure; I50.31 Acute diastolic (congestive) heart failure; I48.19 Other persistent atrial fibrillation; Z79.01 Long term (current) use of anticoagulants; F17.210 Nicotine dependence, cigarettes, uncomplicated | CPT/HCPCS: 99214 ==

== ENCOUNTER 2023-07-05 09:02 | Inpatient (IN) | payer MEDICARE, SELFPAY ==
[2023-07-05] VITALS (11 sets, daily range): BP systolic 79–148; BP diastolic 62–93; PULSE 85–156; RESP 2–29; TEMP 36.7–36.9; O2SAT 93–99; BMI 29.3; BMI 30.2
--- NOTE | 2023-07-05 09:12 | XR_ITS ---
WS: [id number] Portable AP upright chest, 07/05/2023 Clinical Data: dyspnea/cough Comparison: Portable chest, 04/16/2019. Findings: No nodules, masses or effusions are seen. The heart is slightly enlarged. The pulmonary vas cularity is not increased. No pneumonia or pneumothorax is seen. Monitor leads are on the chest wall. Impression: Mild cardiomegaly.
--- NOTE | 2023-07-05 09:16 | ED_ITS ---
HPI - Arrhythmia/Palpitations 2 General: Chief Complaint: Arrhythmia/Palpitations Stated Complaint: dizzy, afib Time Seen by Provider: 07/05/23 09:11 Source: patient Mode of arrival: ambulatory History of Present Illness: 72-year-old female history of atrial fib rillation presents with A-fib with rapid ventricular response complaining of some mild chest comfort and shortness of breath. States been going on for a couple of days. She has been lightheaded and dizzy is well she has not taken her morning medications today. She did not take her full dose of metoprolol last night. She has noticed both orthopnea and dyspnea on exertion. MD complaint: rapid heart beat and heart racing Duration: constant Severity: moderate Context: occurred during rest Arrhythmia history: atrial fibrillation Associated symptoms: Reports short of breath; Deny anxiety, cough, diaphoresis, muscle cramps, nausea, paresthesias, pre- syncope, sense of impending doom, syncope or vomiting Review of Systems 2 Const: Denies: fever(s), chills, fatigue, malaise or diaphoresis Card: Reports: chest pain, palpitations, irregular heart rhythm, dyspnea on exertion and orthopnea; Denies: syncope or pre-syncope Resp: Reports: dyspnea GI: Denies: nausea or vomiting : Denies: dysuria, urinary frequency or urinary urgency Musc: Denies: muscle cramps Skin/Breast: Denies: rash Psych: Denies: anxiety PFSH ED 2 PFSH: Medical History (Updated 07/14/23 @ 15:38 by Justino Garcia DO) Depression with anxiety Urinary, incontinence, stress female [place]-Walker grade 3 cystocele Urolithiasis Benign essential HTN Bradycardia High risk medication use Hiatal hernia COPD (chronic obstructive pulmonary disease) Congestive heart failure Atrial fibrillation EKG from 10/07/2019 revealed revealed sinus bradycardia with a rate of 45 bpm. Chest pain Cystocele Recto-vaginal fistula Ureteral calculus Surgical History (Updated 07/11/23 @ 00:01 by SHABANA Flaherty) Hx of bladder repair surgery Hx of total hysterectomy History of tubal ligation Hx of appendectomy History of cholecystectomy History of cardiac radiofrequency ablation Family History Grandfather Diabetes maternal Grandmother Diabetes maternal Stroke maternal Family/Other Diabetes maternal uncles Breast cancer maternal aunt, onset 40's Denies family history of Colon cancer Ovarian cancer Clotting disorder Hyperlipidemia Anesthesia complication Bleeding disorder Hypertension Uterine cancer Social History Smoking and tobacco/nicotine status: current every day tobacco/nicotine user cigarettes Packs smoked per day: 1 [ Other cigarette details: smoking over 50 years] Alcohol intake: never Substance/Drug Use: never Marital status: / Physical Exam 2 Const: GENERAL APPEARANCE: cooperative and comfortable O RIENTATION/CONSCIOUSNESS: Yes awake, Yes oriented to person, Yes oriented to place and Yes oriented to time HENMT: COMMON NORMALS: normocephalic, atraumatic and hearing grossly normal bilaterally HEAD & SCALP: normocephalic and atraumatic Resp: COMMON NORMALS: normal respiratory effort, No retractions, No use of accessory muscles and clear to auscultation bilaterally AUSCULTATION: clear to auscultation bilaterally Cardio: COMMON NORMALS: No murmurs present (Cardio) RATE: tachycardic R HYTHM: abnormal rhythm irregularly irregular GI: COMMON NORMALS: Soft to palpation and No hepatosplenomegaly present A USCULTATION: Yes normoactive bowel sounds PALPATION: Yes Soft to palpation, No Tenderness to palpation present (GI), No Guarding due to palpation present (GI) and Yes No hepatosplenomegaly present Extremity: COMMON NORMALS: normal to inspection, capillary refill normal, no clubbing, cyanosis or edema, no calf tenderness and no pedal edema Neuro: SENSORIUM/ORIENTATION: Yes oriented to person, Yes oriented to place and Yes oriented to time Skin: COMMON NORMALS: no rashes or lesions noted GENERAL SKIN EXAM: no rashes or lesions noted Course 2 Vital Signs: Vital signs: Vital Signs Temperature 98.0 F 07/10/23 14:36 Pulse Rate 56 L 07/10/23 14:36 Respiratory Rate 16 07/10/23 14:36 Blood Pressure 144/48 07/10/23 14:36 Pulse Oximetry 99 07/10/23 14:36 Oxygen Delivery Me thod Room Air 07/10/23 11:32 MDM - Arrhythmia/Palpitations Medical Decision Making A-fib with RVR initially started on Cardizem. She had not taken her medications today she is given metoprolol will admit to CICU discussed with Dr. Nelson orders written Medical Records I reviewed the patient's medical records. Lab Data I reviewed the patient's lab results. 07/08/23 05:17 07/10/23 03:20 Laboratory Results WBC 5.60 10^3/uL (3.29-11.43) 07/06/23 03:25 RBC 3.93 10^6/uL (3.85-5.65) 07/06/23 03:25 Hgb 11.70 g/dL (11.27-16.99) 07/06/23 03:25 Hct 36.9 % (36-47) 07/06/23 03:25 MCV 93.9 fl (85-98) 07/06/23 03:25 MCH 29.8 pg (27-33) 07/06/23 03:25 MCHC 31.7 g/dL (30-55) 07/06/23 03:25 RDW 13.8 % (12.1-15.1) 07/06/23 03:25 Plt Count 171 10^3/cmm (157-399) 07/06/23 03:25 MPV 11.5 fL (7.4-10.4) H 07/06/23 03:25 Neut % (Auto) 54.0 % 07/06/23 03:25 Lymph % (Auto) 29.8 % 07/06/23 03:25 [place] % (Auto) 10.7 % 07/06/23 03:25 Eos % (Auto) 4.8 % 07/06/23 03:25 Baso % (Auto) 0.5 % 07/06/23 03:25 Neut # (Auto) 3.02 10^3/uL (1.8-7.7) 07/06/23 03:25 Lymph # (Auto) 1.7 10^3/uL (0.8-4.8) 07/06/23 03:25 [place] # (Auto) 0.6 10^3/uL (0.2-0.9) 07/06/23 03:25 Eos # (Auto) 0.3 10^3/uL (0.0-0.8) 07/06/23 03:25 Baso # (Auto) 0.0 10^3/uL (0.0-0.1) 07/06/23 03:25 Nucleated RBC % (auto) 0 % 07/06/23 03:25 Nucleated RBCs # 0.0 /100WBC 07/06/23 03:25 Sodium 144 mmol/L (136-145) 07/06/23 03:25 Potassium 4.0 mmol/L (3.5-5.1) 07/06/23 03:25 Chloride 113 mmol/L (98-107) H 07/06/23 03:25 Carbon Dioxide 21 mmol/L (22-29) L 07/06/23 03:25 Anion Gap 14.0 (5-19) 07/06/23 03:25 BUN 10 mg/dL (8-23) 07/06/23 03:25 Creatinine 0.7 mg/dL (0.5-0.9) 07/06/23 03:25 GFR Calculation Not Reportable 07/06/23 03:25 Glucose 110 mg/dL (65-115) 07/06/23 03:25 Calculated Osmolality 298 mOsm/kg (285-295) H 07/06/23 03:25 Calcium 8.5 mg/dL (8.5-10.5) 07/06/23 03:25 Magnesium 2.0 mg/dL (1.7-2.3) 07/05/23 09:17 Total Bilirubin 0.3 mg/dL (0.15-1.2) 07/06/23 03:25 AST 13 U/L (0-32) 07/06/23 03:25 ALT 12 U/L (0-33) 07/06/23 03:25 Alkaline Phosphatase 75 U/L (35-105) 07/06/23 03:25 Troponin T Baseline < 6 ng/L (0-10) 07/05/23 09:17 Troponin T 120 Minute 6.29 ng/L (0-10) 07/05/23 11:06 Delta Troponin T 0.83633 ABS# (0-10) 07/05/23 11:06 Troponin T Hi Sens 6Hr 6.00 ng/L (0-10) 07/05/23 15:38 Troponin T Hi Sens 6Hr Delta 0.59232 ng/L (0-12) 07/05/23 15:38 Total Protein 5.9 g/dL (6.6-8.7) L 07/06/23 03:25 Albumin 3.6 g/dL (3.5-5.2) 07/06/23 03:25 Globulin 2.3 g/dL (1.3-4.6) 07/06/23 03:25 Lipase 20 U/L (13-60) 07/05/23 09:17 Vitamin B12 2000 pg/mL (232-1245) H 07/06/23 03:25 TSH 1.57 uIU/mL (0.27-4.20) 07/06/23 03:25 Urine Color Yellow (Yellow) 07/05/23 10:01 Urine Appearance Clear (CLEAR) 07/05/23 10:01 Urine pH 6 (5-7) 07/05/23 10:01 Ur Specific [place] 1.020 (1.005-1.030) 07/05/23 10:01 Urine Protein Neg (Negative) 07/05/23 10:01 Urine Glucose (UA) Norm (Normal) 07/05/23 10:01 Urine Ketones Negative (Negative) 07/05/23 10:01 Urine Blood Neg (Negative) 07/05/23 10:01 Urine Nitrate Negative (Negative) 07/05/23 10:01 Urine Bilirubin Neg (Negative) 07/05/23 10:01 Urine Urobilinogen Norm mg/dL (Negative) 07/05/23 10:01 Ur Leukocyte Esterase Negative (Negative) 07/05/23 10:01 All radiology interpretation(s) finalized by discharge Discharge Plan Discharge Patient Disposition: Admitted As Inpatient Admit Provider: Aj Mcgowan Clinical Impression: Atrial fibrillation with rapid ventricular response, Benign essential HTN Condition: Stable Coding Level of Care Code ED Central Supply Nurse for Thaddeus Juarez
[2023-07-05] MEDS: dilTIAZem 5 mg/mL SDV 5 mL 20 MG IVP (09:23)
[2023-07-05] MEDS: dilTIAZem 100 MG in sodium chloride 0.9% (add-van) 100 ML IV (09:26)
[2023-07-05 09:27] LABS: Basophils % 0.5 %; Eosinophils # 0.3 10^3/uL (0.0-0.8); Eosinophils % 4.1 %; Hematocrit 40.1 % (36-47); Lymphocytes # 1.7 10^3/uL (0.8-4.8); Lymphocytes % 27.6 %; Mean Corpuscular HGB Conc 31.9 g/dL (30-55); Mean Corpuscular Volume 93.9 fl (85-98); Mean Platelet Volume 11.4 fL (7.4-10.4); Monocytes # 0.6 10^3/uL (0.2-0.9); Monocytes % 10.3 %; Neutrophils # 3.49 10^3/uL (1.8-7.7); Neutrophils % 57.3 %; Nucleated Red Blood Cells % 0 %; Platelet Count 194 10^3/cmm (157-399); Red Blood Count 4.27 10^6/uL (3.85-5.65); White Blood Count 6.09 10^3/uL (3.29-11.43)
[2023-07-05] MEDS: apixaban 5 mg Tablet PO ×2 (09:42→17:42)
[2023-07-05] MEDS: metoprolol tartrate 50 mg Tablet PO ×2 (09:42→17:41)
[2023-07-05 09:43] LABS: Alanine Aminotransferase 13 U/L (0-33); Albumin Level 3.9 g/dL (3.5-5.2); Alkaline Phosphatase 80 U/L (35-105); Anion Gap 15.9 (5-19); Aspartate Amino Transferase 15 U/L (0-32); Blood Urea Nitrogen 11 mg/dL (8-23); Calcium 8.7 mg/dL (8.5-10.5); Carbon Dioxide 19 mmol/L (22-29); Chloride 111 mmol/L (98-107); Globulin 2.5 g/dL (1.3-4.6); Glucose 135 mg/dL (65-115); Lipase 20 U/L (13-60); Osmolality Calculated 295 mOsm/kg (285-295); Potassium 3.9 mmol/L (3.5-5.1); Sodium 142 mmol/L (136-145); Total Bilirubin 0.4 mg/dL (0.15-1.2); Total Protein 6.4 g/dL (6.6-8.7)
--- NOTE | 2023-07-05 10:00 | PC.PHAR ---
pt states she takes care of her own medications-pt states she hasnt taken questran in months ext shows last filled 10/28/22 -pt states she uses 2 puffs qam of breo ellipta-pt states she finished doxycycline hyc 100mg bid filled 06/12/23 10d/s and prednisone 20mg 2 tabs daily rx filled 06/12/23 7d/s states she finished a week ago-
[2023-07-05 10:22] LABS: Add Urine Microscopic? NO; Charge for UA Resulting for Rev
--- NOTE | 2023-07-05 10:44 | ECG_ITS ---
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 Measurements Intervals [place] Rate: 181 P: 0 [place]: 0 QRS: 25 QRSD: 82 T: 53 QT: 244 QTc: 424 Interpretive Statements ATRIAL FIBRILLATION WITH RAPID VENTRICULAR RESPONSE LOW QRS VOLTAGE IN PRECORDIAL LEADS [QRS DEFLECTION < 1.0 mV IN CHEST LEADS] POSSIBLE RIGHT VENTRICULAR CONDUCTION DELAY [RSR (QR) IN V1/V2] SEPTAL MYOCARDIAL INFARCTION , OF INDETERMINATE AGE [40+ ms Q WAVE IN V1/V2] CRITICAL TEST RESULT Compared to ECG 06/04/2019 05:43:48 Low QRS voltage now present Myocardial infarct finding now present Ventricular premature complex(es) no longer present Electronically Signed On 07-06-2023 6:05:54 MANAGER BENCH by Sabrina Benitez M.D. [id number]
[2023-07-05 10:52] LABS: Bilirubin Urine Neg (Negative); Blood Urine Neg (Negative); Glucose Urine UA Norm (Normal); Ketones Urine Negative (Negative); Leukocyte Esterase Urine Negative (Negative); Nitrate Urine Negative (Negative); Protein Urine Neg (Negative); Urine Appearance Clear (CLEAR); Urine Color Yellow (Yellow); Urobilinogen Urine Norm (Negative); pH Urine 6 (5-7)
[2023-07-05 11:05] LABS: Troponin(5th) Baseline < 6 ng/L (0-10)
[2023-07-05 11:30] LABS: Troponin 5 2HR 6.29 ng/L (0-10)
--- NOTE | 2023-07-05 12:28 | ECG_ITS ---
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 Measurements Intervals [place] Rate: 107 P: 0 [place]: 0 QRS: 8 QRSD: 89 T: 44 QT: 348 QTc: 465 Interpretive Statements ATRIAL FIBRILLATION WITH RAPID VENTRICULAR RESPONSE LOW QRS VOLTAGE IN PRECORDIAL LEADS [QRS DEFLECTION < 1.0 mV IN CHEST LEADS] POSSIBLE RIGHT VENTRICULAR CONDUCTION DELAY [RSR (QR) IN V1/V2] SEPTAL MYOCARDIAL INFARCTION , OF INDETERMINATE AGE [40+ ms Q WAVE IN V1/V2] Compared to ECG 06/04/2019 05:43:48 Low QRS voltage now present Myocardial infarct finding now present Ventricular premature complex(es) no longer present Electronically Signed On 07-06-2023 6:13:20 ENVIRONMENTAL ENGINEERING ASSISTANT by Sabrina Benitez M.D. [id number]
--- NOTE | 2023-07-05 15:46 | P.HP_ITS ---
Providers/Chief Complaint 2 Admitting Physician: Aj Mcgowan MD Primary Care Provider: Malachi Haque DO Chief Complaint: dizzy, afib History of Present Illness Priyanka Roberts is a 72 year old female presenting to the hospital with palpitations, shortness of breath, feeling as if she is going to faint with dizziness. She states symptoms been going on for approximately 5 days. She had a respiratory illness in the last 2 weeks, for which she was given doxycycline and steroids and finishing these about a week ago. She denies any fevers currently. She has had no chest pain. She does have past history of atrial fibrillation, but reports she goes in and out of sinus rhythm. She denies any vomiting, diarrhea, blood in her stool or black or tarry stools. Review of Systems 2 General: Reports: 10 or more systems reviewed and unremarkable except in HPI and below Card: Reports: palpitations; Denies: chest pain Resp: Reports: dyspnea GI: Denies: abdominal pain, nausea, vomiting, hematochezia or melena Medications/Allergies Home Medications Medication Instructions Recorded Confirmed Last Taken Type apixaban 5 mg tablet (Eliquis) 5 mg PO BID 10/07/19 07/05/23 07/04/23 History loratadine 10 mg tablet (Claritin) 10 mg PO QAM 10/07/19 07/05/23 07/04/23 History vitamin B complex-vitamin B12 See Rx Instructions .Route .COMPLEX 04/07/21 07/05/23 04/11/21 History 1,200 mcg/mL sublingual drops cilostazol 100 mg tablet 100 mg PO BID #180 tabs 09/13/22 07/05/23 07/04/23 Rx metoprolol tartrate 25 mg tablet 50 mg (2 x 25 mg) PO BID #360 tabs 11/05/22 07/05/23 07/04/23 Rx albuterol sulfate 90 mcg/actuation 2 puff inhalation Q6H PRN 01/08/23 07/05/23 Unknown History aerosol inhaler shortness of breath or wheezing B6 0.85 mg-folic 200 1 tab PO QAM 07/05/23 07/05/23 07/04/23 History [id number] oral chewable tablet (Neuriva Plus) ascorbic acid (vitamin C) 1,000 mg 1,000 mg PO QAM 07/05/23 07/05/23 07/04/23 History tablet (Vitamin C) cholecalciferol (vitamin D3) 25 25 mcg PO QAM 07/05/23 07/05/23 07/04/23 History mcg (1,000 unit) capsule (Vitamin D3) fluticasone furoate 200 2 ea inhalation QAM 07/05/23 07/05/23 07/04/23 History mcg-vilanterol 25 mcg/dose see pharmacy inhalation powder (Breo Ellipta) comment ibuprofen 200 mg tablet 800 mg PO Q6H PRN Pain 07/05/23 07/05/23 Unknown History losartan 50 mg tablet 50 mg PO QAM 07/05/23 07/05/23 07/04/23 History multivitamin 1 tab PO QAM 07/05/23 07/05/23 07/04/23 History sertraline 50 mg tablet 50 mg PO QAM 07/05/23 07/05/23 07/04/23 History Allergies Allergy/AdvReac Type Severity Reaction Status Date / Time No Known Allergies Allergy Verified 07/05/23 09:48 PFSH Acute 2 PFSH: Medical History (Updated 07/05/23 @ 15:53 by Aj Mcgowan MD) Depression with anxiety Urinary, incontinence, stress female [place] grade 3 cystocele Urolithiasis Benign essential HTN Bradycardia High risk medication use Hiatal hernia COPD (chronic obstructive pulmonary disease) Congestive heart failure Atrial fibrillation EKG from 10/07/2019 revealed revealed sinus bradycardia with a rate of 45 bpm. Chest pain Cystocele Recto-vaginal fistula Ureteral calculus Surgical History History of tubal ligation Hx of appendectomy History of cholecystectomy History of cardiac radiofrequency ablation Family History Grandfather Diabetes maternal Grandmother Diabetes maternal Stroke maternal Family/Other Diabetes maternal uncles Breast cancer maternal aunt, onset 40's Denies family history of Colon cancer Ovarian cancer Clotting disorder Hyperlipidemia Anesthesia complication Bleeding disorder Hypertension Uterine cancer Social History Smoking and tobacco/nicotine status: current every day tobacco/nicotine user cigarettes Packs smoked per day: 1 [ Other cigarette details: smoking over 50 years] Alcohol intake: never Substance/Drug Use: never Marital status: / Vitals/I&O/Wt Last Vital Signs Temp 98.1 F 07/05/23 09:07 Pulse 112 H 07/05/23 13:55 Resp 20 H 07/05/23 12:18 BP 79/62 07/05/23 13:55 Pulse Ox 94 07/05/23 13:55 O2 Del Method Room Air 07/05/23 14:29 07/05/23 07/05/23 07/05/23 06:59 14:59 22:59 Intake Total 9.25 / 9.25 Balance 9.25 / 9.25 Weight last 48 hrs Weight 77.564 kg Physical Exam 2 Narrative: General exam is no apparent distress, conversant and pleasant HEENT: Atraumatic normocephalic. Pupils equally round. Oropharynx clear. Neck is supple no lymphadenopathy thyromegaly Cardiovascular irregular, irregular with accelerated rate. Telemetry indicates atrial fibrillation with a rate of 110 Lungs clear no wheezing or crackles Abdomen is soft nontender positive bowel sounds. No obvious organomegaly exams deferred Extremities no cyanosis clubbing or edema, cap refill brisk Skin no rash Neuro no obvious focal deficits Data 07/05/23 09:17 07/05/23 09:17 Other Labs: Chest x-ray reviewed by me no infiltrate EKG reviewed by me atrial fibrillation, normal axis, nonspecific ST-T wave changes LFTs, calcium, albumin normal Troponin less than 6 with repeat of 6 Urinalysis negative A&P Assessment and plan (1) Atrial fibrillation with rapid ventricular response: Patient presents with atrial fibrillation with rapid ventricular rate In the emergency department she was somewhat hypotensive on Cardizem Initiate her metoprolol to 50 mg twice daily Continue her anticoagulation If blood pressure tolerates, consider increasing beta-godfrey further or adding short acting diltiazem. If blood pressure is significantly decreased could consider digoxin in this patient with normal renal function. Amiodarone may have too much toxicity in this patient with few other medical problems. Echocardiogram in 2019 was an ejection fraction of 50%. Repeat echocardiogram (2) Nicotine dependence: Nicotine patch Encourage abstinence (3) Benign essential HTN: Continue metoprolol Hold/discontinue losartan. We may need to make more room, to adjust medication for rate control with further additions of metoprolol and/or addition of diltiazem Plan Other medical problems as outlined in past medical history Full code Apixaban for DVT prophylaxis will suffice as well as anticoagulation for atrial fibrillation Attestations 2 Medical Necessity Statement*: Will need less than 2 midnight stay for evaluation and treatment of atrial fibrillation with rapid ventricular rates Diagnoses Atrial fibrillation with rapid ventricular response I48.91 Nicotine dependence F17.200 Benign essential HTN I10 Time Spent (min) 53
[2023-07-05 16:16] LABS: Troponin 5 6HR Delta 0.00001 ng/L (0-12)
--- NOTE | 2023-07-05 16:44 | ECG_ITS ---
[facility] Test Date: 2023-07-05 Pat Name: Priyanka Roberts Department: Room: 104 Gender: Female [employer]: : 1950 Requested By: Justino George Order Number: [id number] Bee MD: Sabrina Benitez M.D. Measurements Intervals [place] Rate: 120 P: 0 CO: 0 QRS: 45 QRSD: 81 T: 30 QT: 319 QTc: 451 Interpretive Statements ATRIAL FIBRILLATION WITH RAPID VENTRICULAR RESPONSE LOW QRS VOLTAGE IN PRECORDIAL LEADS [QRS DEFLECTION < 1.0 mV IN CHEST LEADS] POSSIBLE RIGHT VENTRICULAR CONDUCTION DELAY [RSR (QR) IN V1/V2] SEPTAL MYOCARDIAL INFARCTION , PROBABLY OLD [40+ ms Q WAVE IN V1/V2] Compared to ECG 07/05/2023 12:28:37 No significant changes Electronically Signed On 07-06-2023 6:09:48 [employer] by Sabrina Benitez M.D. [email or web address].[employer]/store/OM/[id number]
[2023-07-05] MEDS: nicotine 21 mg Patch 1 PATCH TRANSDERMA (16:49)
[2023-07-05] MEDS: cilostazol 100 mg Tablet PO (17:42)
[2023-07-05 18:29] LABS: Thyroid Stimulating Hormone 2.04 uIU/mL (0.27-4.20)
[2023-07-05] MEDS: dilTIAZem 100 MG in sodium chloride 0.9% (add-van) 100 ML 7.5 MG IV (20:23)
[2023-07-06] VITALS (12 sets, daily range): BP systolic 90–122; BP diastolic 55–96; PULSE 68–132; RESP 15–25; TEMP 36.4–37.2; O2SAT 93–97
[2023-07-06] MEDS: acetaminophen 325 mg Tablet 650 MG PO (00:33)
--- NOTE | 2023-07-06 00:38 | PC.NURSE ---
Patient's heart rate 90s to mid 120s worse with exertion. Increased cardizem drip to 10mg/hr. Instructed patient on medication. Patient verbalized complete understanding but reports wanting to go home today if possible.
[2023-07-06 03:52] LABS: Basophils % 0.5 %; Eosinophils # 0.3 10^3/uL (0.0-0.8); Eosinophils % 4.8 %; Hematocrit 36.9 % (36-47); Lymphocytes # 1.7 10^3/uL (0.8-4.8); Lymphocytes % 29.8 %; Mean Corpuscular HGB Conc 31.7 g/dL (30-55); Mean Corpuscular Hemoglobin 29.8 pg (27-33); Mean Corpuscular Volume 93.9 fl (85-98); Mean Platelet Volume 11.5 fL (7.4-10.4); Monocytes # 0.6 10^3/uL (0.2-0.9); Monocytes % 10.7 %; Neutrophils # 3.02 10^3/uL (1.8-7.7); Nucleated Red Blood Cells % 0 %; Platelet Count 171 10^3/cmm (157-399); Red Blood Count 3.93 10^6/uL (3.85-5.65); Red Cell Distribution Width 13.8 % (12.1-15.1)
[2023-07-06 04:19] LABS: Alanine Aminotransferase 12 U/L (0-33); Albumin Level 3.6 g/dL (3.5-5.2); Alkaline Phosphatase 75 U/L (35-105); Aspartate Amino Transferase 13 U/L (0-32); Blood Urea Nitrogen 10 mg/dL (8-23); Calcium 8.5 mg/dL (8.5-10.5); Carbon Dioxide 21 mmol/L (22-29); Chloride 113 mmol/L (98-107); Creatinine Clr Calc Pharmacy 63.0665; Globulin 2.3 g/dL (1.3-4.6); Glucose 110 mg/dL (65-115); Osmolality Calculated 298 mOsm/kg (285-295); Sodium 144 mmol/L (136-145); Total Bilirubin 0.3 mg/dL (0.15-1.2); Total Protein 5.9 g/dL (6.6-8.7)
[2023-07-06] MEDS: sertraline 50 mg Tablet PO (05:21)
[2023-07-06] MEDS: metoprolol tartrate 50 mg Tablet PO ×2 (08:11→17:53)
[2023-07-06] MEDS: nicotine 21 mg Patch 1 PATCH TRANSDERMA (08:12)
[2023-07-06] MEDS: cilostazol 100 mg Tablet PO ×2 (08:12→17:53)
[2023-07-06] MEDS: apixaban 5 mg Tablet PO ×2 (08:12→17:53)
[2023-07-06] MEDS: dilTIAZem 100 MG in sodium chloride 0.9% (add-van) 100 ML 10 MG IV (08:13)
[2023-07-06 14:14] LABS: Thyroid Stimulating Hormone 1.57 uIU/mL (0.27-4.20)
[2023-07-06 14:21] LABS: Vitamin B12 2000 pg/mL (232-1245)
--- NOTE | 2023-07-06 14:21 | PC.NURSE ---
Patient was given loading dose of amiodarone out of bag.
--- NOTE | 2023-07-06 15:50 | P.PN_ITS ---
Subjective 2 Subjective: Hospital course, labs appreciated. Patient on Cardizem of 2.5 with daughter at bedside. Heart rate running more than 110s. Patient denies any new complaints. Remains hemodynamically stable otherwise. Denies difficulty breathing. Vitals/I&O/Wt Last Vital Signs Temp 98.5 F 07/06/23 11:39 Pulse 132 H 07/06/23 14:00 Resp 19 H 07/06/23 11:39 BP 100/69 07/06/23 11:39 Pulse Ox 95 07/06/23 11:39 O2 Del Method Room Air 07/06/23 11:39 07/06/23 07/06/23 07/06/23 06:59 14:59 22:59 Intake Total 330.25 / 2130.25 818.375 / 818.375 Balance 330.25 / 2130.25 818.375 / 818.375 Weight last 48 hrs Weight 79.288 kg Weight 79.832 kg Weight 77.564 kg Physical Exam 2 Narrative: General exam is no apparent distress, conversant and pleasant HEENT: Atraumatic normocephalic. Pupils equally round. Oropharynx clear. Neck is supple no lymphadenopathy thyromegaly Cardiovascular irregular, irregular with accelerated rate. Telemetry indicates atrial fibrillation with a rate of 110 Lungs clear no wheezing or crackles Abdomen is soft nontender positive bowel sounds. No obvious organomegaly exams deferred Extremities no cyanosis clubbing or edema, cap refill brisk Skin no rash Neuro no obvious focal deficits Data 07/06/23 03:25 07/06/23 03:25 A&P Assessment and plan (1) Atrial fibrillation with rapid ventricular response: Chronic A-fib. Has history of failed ablation and cardioversion in the past. Borderline blood pressures on minimal Cardizem drip for now. Continued on home dose of metoprolol 50 mg twice daily. Not much room to go higher on metoprolol Cardizem. For now we will switch to amiodarone drip after amiodarone push. Discussed about possible toxicity with the medication any longer done. Patient is agreeable to start. Appreciate all echocardiogram in 2019. Will repeat echocardiogram once heart rate better controlled. Have advised patient to decrease in Caffeine intake. Oral Lasix 40 mg one-time. (2) Nicotine dependence: Nicotine patch Encourage abstinence (3) Benign essential HTN: Continue metoprolol. Goal blood pressure less than 140/90 mmHg. Hold/discontinue losartan. We may need to make more room, to adjust medication for rate control with further additions of metoprolol and/or addition of diltiazem Plan Other medical problems as outlined in past medical history Full code Apixaban for DVT prophylaxis will suffice as well as anticoagulation for atrial fibrillation Attestations 2 Medical Necessity Statement*: Requires further hospitalization for management of A-fib with RVR. Switch to inpatient. Coding Level of Care Code Acute Code for Chg Fwd Diagnoses Atrial fibrillation with rapid ventricular response I48.91 Nicotine dependence F17.200 Benign essential HTN I10
[2023-07-06] MEDS: FUROsemide 40 mg Tablet PO (17:53)
[2023-07-07] VITALS (9 sets, daily range): BP systolic 96–116; BP diastolic 63–79; PULSE 88–146; RESP 14–26; TEMP 36.3–37.1; O2SAT 94–97
[2023-07-07 01:42] LABS: Basophils % 0.4 %; Eosinophils # 0.3 10^3/uL (0.0-0.8); Eosinophils % 3.6 %; Hematocrit 39.5 % (36-47); Lymphocytes # 1.7 10^3/uL (0.8-4.8); Lymphocytes % 23.8 %; Mean Corpuscular HGB Conc 32.2 g/dL (30-55); Mean Corpuscular Hemoglobin 29.9 pg (27-33); Mean Corpuscular Volume 92.9 fl (85-98); Mean Platelet Volume 11.4 fL (7.4-10.4); Monocytes # 0.9 10^3/uL (0.2-0.9); Monocytes % 12.3 %; Neutrophils # 4.15 10^3/uL (1.8-7.7); Neutrophils % 59.6 %; Nucleated Red Blood Cells % 0 %; Platelet Count 188 10^3/cmm (157-399); Red Blood Count 4.25 10^6/uL (3.85-5.65); Red Cell Distribution Width 13.6 % (12.1-15.1); White Blood Count 6.97 10^3/uL (3.29-11.43)
[2023-07-07 01:52] LABS: Estmated Average Glucose 117; Hemoglobin A1C 5.7 % (4.0-6.0)
[2023-07-07 02:02] LABS: Cholesterol 201 mg/dL (0-200); HDL Cholesterol 49 mg/dL (60-100); LDL Cholesterol Calculated 133 mg/dL (50-129); Phosphorus 3.3 mg/dL (2.5-4.5); Triglycerides 96 mg/dL (0-150); VLDL Cholestrol Calculation 19 mg/dL (0-30)
[2023-07-07 02:03] LABS: Alanine Aminotransferase 13 U/L (0-33); Albumin Level 3.9 g/dL (3.5-5.2); Alkaline Phosphatase 88 U/L (35-105); Anion Gap 15.5 (5-19); Aspartate Amino Transferase 21 U/L (0-32); Blood Urea Nitrogen 12 mg/dL (8-23); Calcium 9.1 mg/dL (8.5-10.5); Carbon Dioxide 24 mmol/L (22-29); Chloride 106 mmol/L (98-107); Globulin 2.6 g/dL (1.3-4.6); Glucose 132 mg/dL (65-115); Osmolality Calculated 296 mOsm/kg (285-295); Potassium 3.5 mmol/L (3.5-5.1); Sodium 142 mmol/L (136-145); Total Bilirubin 0.3 mg/dL (0.15-1.2); Total Protein 6.5 g/dL (6.6-8.7)
--- NOTE | 2023-07-07 05:18 | PC.NURSE ---
notified Dr Lovell of HR 130s-140s on amiodarone gtt, no new orders at this time
[2023-07-07 05:21] LABS: Folate Level > 20.0 ng/mL (4.8-37.3)
[2023-07-07] MEDS: sertraline 50 mg Tablet PO (06:03)
[2023-07-07] MEDS: metoprolol tartrate 50 mg Tablet PO ×2 (08:48→17:59)
[2023-07-07] MEDS: nicotine 21 mg Patch 1 PATCH TRANSDERMA (08:48)
[2023-07-07] MEDS: apixaban 5 mg Tablet PO ×2 (08:49→17:59)
[2023-07-07] MEDS: cilostazol 100 mg Tablet PO ×2 (08:49→17:59)
--- NOTE | 2023-07-07 13:09 | PC.NURSE ---
pt's iv noted to be infiltrated this morning.was dc'd...another iv started in left ac.dr saldaña made rounds and was apprised of situation.he ordered to restart amioderone protocol.amioderone increased to 1 mg/kg/min at this time (33.3 mls per hour).plans to digitalize pt as well for continued high heart rate.
--- NOTE | 2023-07-07 13:19 | P.PN_ITS ---
Subjective 2 Subjective: No acute events overnight. Today morning patient seen sitting at bedside. Patient remains asymptomatic. Was started on amiodarone drip yesterday. Heart rate still over 100. As per nursing staff patient's IV line had infiltrated and they are not really sure how much amiodarone drip she actually brought. Blood work appreciated. Vitals/I&O/Wt Last Vital Signs Temp 97.4 F L 07/07/23 11:45 Pulse 110 H 07/07/23 11:45 Resp 14 07/07/23 11:45 BP 102/79 07/07/23 11:45 Pulse Ox 97 07/07/23 11:45 O2 Del Method Room Air 07/07/23 11:45 07/06/23 07/07/23 07/07/23 22:59 06:59 14:59 Intake Total 717.477 / 1535.852 400.576 / 1936.428 774.757 / 774.757 Output Total 1600 / 1600 2000 / 3600 Balance -882.523 / -64.148 -1599.424 / -1663.572 774.757 / 774.757 Weight last 48 hrs Weight 78.109 kg Weight 79.288 kg Weight 79.832 kg Physical Exam 2 Narrative: General exam is no apparent distress, conversant and pleasant HEENT: Atraumatic normocephalic. Pupils equally round. Oropharynx clear. Neck is supple no lymphadenopathy thyromegaly Cardiovascular irregular, irregular with accelerated rate. Telemetry indicates atrial fibrillation with a rate of 110 Lungs clear no wheezing or crackles Abdomen is soft nontender positive bowel sounds. No obvious organomegaly exams deferred Extremities no cyanosis clubbing or edema, cap refill brisk Skin no rash Neuro no obvious focal deficits Data 07/07/23 01:17 07/07/23 01:17 A&P Assessment and plan (1) Atrial fibrillation with rapid ventricular response: Chronic A-fib. Has history of failed ablation and cardioversion in the past. Borderline blood pressures on minimal Cardizem drip for now. Continued on home dose of metoprolol 50 mg twice daily. Not much room to go higher on metoprolol Cardizem. Started on amiodarone drip yesterday. IV infiltrated. Will restart the protocol today. As heart rate still remains more than 100 will start on digoxin load with 500 mcg IV one-time right now followed by 250 mcg 2 doses every 6 hours. Should check digoxin level around noon tomorrow. If heart rate does not improve will consult cardiology for further recommendations for possible cardioversion versus converting to sotalol. Repeat oral Lasix 40 mg one-time. (2) Nicotine dependence: Nicotine patch Encourage abstinence (3) Benign essential HTN: Continue metoprolol. Goal blood pressure less than 140/90 mmHg. Hold/discontinue losartan. We may need to make more room, to adjust medication for rate control with further additions of metoprolol and/or addition of diltiazem Plan Other medical problems as outlined in past medical history Full code Apixaban for DVT prophylaxis will suffice as well as anticoagulation for atrial fibrillation Attestations 2 Medical Necessity Statement*: Requires further hospitalization for management of atrial fibrillation with rapid ventricular response while amiodarone drip discontinued and digoxin load is started. Diagnoses Atrial fibrillation with rapid ventricular response I48.91 Nicotine dependence F17.200 Benign essential HTN I10
[2023-07-07] MEDS: digoxin 250 mcg/ml INJ 2 mL 500 MCG IVP (13:35)
[2023-07-07] MEDS: FUROsemide 40 mg Tablet PO (13:35)
[2023-07-07] MEDS: digoxin 250 mcg/ml INJ 2 mL IVP (19:25)
[2023-07-08] VITALS (11 sets, daily range): BP systolic 96–135; BP diastolic 65–74; PULSE 89–117; RESP 13–24; TEMP 36.6–37.1; O2SAT 88–97
[2023-07-08] MEDS: digoxin 250 mcg/ml INJ 2 mL IVP (01:53)
[2023-07-08 05:55] LABS: Basophils % 0.6 %; Eosinophils # 0.3 10^3/uL (0.0-0.8); Hematocrit 43.2 % (36-47); Lymphocytes # 1.7 10^3/uL (0.8-4.8); Lymphocytes % 26.4 %; Mean Corpuscular HGB Conc 31.3 g/dL (30-55); Mean Corpuscular Hemoglobin 29.7 pg (27-33); Mean Corpuscular Volume 95.2 fl (85-98); Mean Platelet Volume 11.7 fL (7.4-10.4); Monocytes # 0.8 10^3/uL (0.2-0.9); Neutrophils # 3.49 10^3/uL (1.8-7.7); Neutrophils % 55.8 %; Nucleated Red Blood Cells % 0 %; Platelet Count 189 10^3/cmm (157-399); Red Blood Count 4.54 10^6/uL (3.85-5.65); Red Cell Distribution Width 13.4 % (12.1-15.1); White Blood Count 6.25 10^3/uL (3.29-11.43)
[2023-07-08] MEDS: sertraline 50 mg Tablet PO (06:00)
--- NOTE | 2023-07-08 06:00 | USCV_ITS ---
Priyanka Roberts Age: 72 Gender: F : 1950 Exam Date: 07/08/2023 13:52 Ordering Phys: Darryl Rich MD Technologist: Nathanael Rinaldi Exam Location: [facility] [place] Indication: Arrhythmia BP: 117 / 65 HR: 97 Rhythm: Sinus Technical Quality: Adequate MEASUREMENTS (Male / Female) Normal Values 2D ECHO LV Diastolic Diameter PLAX 4.9 cm 4.2 - 5.9 / 3.9 - 5.3 cm LV Systolic Diameter PLAX 2.7 cm IVS Diastolic Thickness 1.4 cm 0.6 - 1.0 / 0.6 - 0.9 cm IVS Systolic Thickness 1.6 cm LVPW Diastolic Thickness 0.9 cm 0.6 - 1.0 / 0.6 - 0.9 cm LVPW Systolic Thickness 1.2 cm LVOT Diameter 2.1 cm LV Ejection Fraction 2D Teich 73.6 % LA Diameter 4.4 cm M-MODE Aortic Annulus Diameter 2.9 cm LA Ao Ratio MM 1.8 MV E Point Septal Separation 0.9 cm DOPPLER AV Peak Velocity 175.5 cm/s LVOT Peak Velocity 131.0 cm/s AV Area Cont Eq vti 2.3 cm squared AV Area Cont Eq pk 2.5 cm squared MV Area PHT 5.0 cm squared Mitral E to A Ratio 1.3 MV E' Velocity 58.5 cm/s Mitral E to MV E' Ratio 19.3 Mitral E to LV E' Lateral Ratio 14.9 Mitral E to LV E' Septal Ratio 27.5 TR Peak Velocity 120.0 cm/s TR Peak Gradient 5.8 mmHg RV Acceleration Time 0.1 s FINDINGS Left Ventricle Normal left ventricular size, systolic function and mildly increased wall thickness, with no regional wall motion abnormalities. Left ventricular ejection fraction is estimated at 55 %. Rhythm precludes evaluation of diastolic function. Right Ventricle Normal right ventricular size and systolic function. RVSP could not be calculated due to incomplete tricuspid regurgitation velocity profile. Right Atrium Normal right atrial size. Left Atrium Mildly increased left atrial size. Mitral Valve Structurally normal mitral valve. No mitral valve stenosis. No significant mitral valve regurgitation. Aortic Valve Structurally normal trileaflet aortic valve. No aortic valve stenosis. No aortic valve regurgitation. Tricuspid Valve Structurally normal tricuspid valve. No tricuspid valve stenosis. Trace tricuspid valve regurgitation. Pulmonic Valve Structurally normal pulmonic valve. No pulmonary valve stenosis. Trace pulmonary valve regurgitation. Pericardium No pericardial effusion. Aorta Normal size aortic root and proximal ascending aorta. IVC Inferior vena cava not visualized. CONCLUSIONS 1. Normal left ventricular size, systolic function and mildly increased wall thickness, with no regional wall motion abnormalities. Left ventricular ejection fraction is estimated at 55 %. 2. When compared to study dated 04/14/2019, left ankle systolic function may have improved. Sabrina Benitez MD (Electronically Signed) Final Date: 08 July 2023 17:35 S
[2023-07-08 06:17] LABS: Magnesium 2.1 mg/dL (1.7-2.3); Phosphorus 2.9 mg/dL (2.5-4.5)
[2023-07-08 06:21] LABS: Alanine Aminotransferase 13 U/L (0-33); Alkaline Phosphatase 87 U/L (35-105); Anion Gap 17.8 (5-19); Aspartate Amino Transferase 16 U/L (0-32); Blood Urea Nitrogen 13 mg/dL (8-23); Calcium 9.1 mg/dL (8.5-10.5); Carbon Dioxide 22 mmol/L (22-29); Chloride 104 mmol/L (98-107); Globulin 2.1 g/dL (1.3-4.6); Glucose 121 mg/dL (65-115); Osmolality Calculated 291 mOsm/kg (285-295); Potassium 3.8 mmol/L (3.5-5.1); Sodium 140 mmol/L (136-145); Total Bilirubin 0.3 mg/dL (0.15-1.2); Total Protein 6.1 g/dL (6.6-8.7)
[2023-07-08] MEDS: metoprolol tartrate 50 mg Tablet PO ×2 (08:18→18:28)
[2023-07-08] MEDS: cilostazol 100 mg Tablet PO ×2 (08:19→18:28)
[2023-07-08] MEDS: apixaban 5 mg Tablet PO ×2 (08:19→18:28)
[2023-07-08] MEDS: nicotine 21 mg Patch 1 PATCH TRANSDERMA (08:19)
[2023-07-08] MEDS: potassium chloride ER 20 mEq Tablet PO (09:44)
--- NOTE | 2023-07-08 11:29 | PC.SOCIAL ---
Pg 2 IMM Explained to pt Pg 2 IMM. No questions voiced. Provided pt a copy. Initialed, dated, & timed a copy & placed in chart.
--- NOTE | 2023-07-08 17:21 | P.CONIM_ITS ---
Providers/Reason For Consult 2 Consulting Physician/Specialty*: Dr. Benitez, Cardiology Reason for Consult*: Atrail fibrillation with RVR Attending Physician: Roldan Nino Primary Care Provider: Malachi Haque DO History of Present Illness History of Present Illness Priyanka Roberts is a 72 year old female with paroxysmal atrial fibrillation with rapid ventricular response s/p cardioversion, previously on amiodarone, currently on beta godfrey and Eliquis and s/p ablation by Dr Tijerina EP at [facility]. She also has HFpEF, PAD, HTN, COPD and h/o bradycardia. She was admitted to the hospital with palpitations, shortness of breath and dizziness for few days before arrival. HR rising to 160's at home. She had URI few days back. She was found to be in A. fib with RVR. She was started on cardizem gtt f/b digoxin and f/b amiodarone gtt. HR remaing in 90's-110's. I have been asked to evaluate her for the same. She complains of hollow feeling and less palpitations presently. Review of Systems 2 General: Reports: 10 or more systems reviewed and unremarkable except in HPI and below Const: Denies: fever(s) or chills ENMT: Denies: epistaxis Card: Reports: palpitations, irregular heart rhythm and lightheadedness; Denies: chest pain or swelling of feet/ankles Resp: Reports: dyspnea; Denies: productive cough or non-productive cough GI: Denies: abdominal pain, nausea, vomiting, hematochezia or melena : Denies: hematuria Musc: Denies: extremity swelling Neuro: Denies: headache(s) or frequent falls Psych: Denies: anxiety or depression Endo: Denies: tired all the time Medications/Allergies Home Medications Medication Instructions Recorded Confirmed Last Taken Type apixaban 5 mg tablet (Eliquis) 5 mg PO BID 10/07/19 07/05/23 07/04/23 History loratadine 10 mg tablet (Claritin) 10 mg PO QAM 10/07/19 07/05/23 07/04/23 History vitamin B complex-vitamin B12 See Rx Instructions .Route .COMPLEX 04/07/21 07/05/23 04/11/21 History 1,200 mcg/mL sublingual drops cilostazol 100 mg tablet 100 mg PO BID #180 tabs 09/13/22 07/05/23 07/04/23 Rx metoprolol tartrate 25 mg tablet 50 mg (2 x 25 mg) PO BID #360 tabs 11/05/22 07/05/23 07/04/23 Rx albuterol sulfate 90 mcg/actuation 2 puff inhalation Q6H PRN 01/08/23 07/05/23 Unknown History aerosol inhaler shortness of breath or wheezing B6 0.85 mg-folic 200 1 tab PO QAM 07/05/23 07/05/23 07/04/23 History [id number] oral chewable tablet (Neuriva Plus) ascorbic acid (vitamin C) 1,000 mg 1,000 mg PO QAM 07/05/23 07/05/23 07/04/23 History tablet (Vitamin C) cholecalciferol (vitamin D3) 25 25 mcg PO QAM 07/05/23 07/05/23 07/04/23 History mcg (1,000 unit) capsule (Vitamin D3) fluticasone furoate 200 2 ea inhalation QAM 07/05/23 07/05/23 07/04/23 History mcg-vilanterol 25 mcg/dose see pharmacy inhalation powder (Breo Ellipta) comment ibuprofen 200 mg tablet 800 mg PO Q6H PRN Pain 07/05/23 07/05/23 Unknown History losartan 50 mg tablet 50 mg PO QAM 07/05/23 07/05/23 07/04/23 History multivitamin 1 tab PO QAM 07/05/23 07/05/23 07/04/23 History sertraline 50 mg tablet 50 mg PO QAM 07/05/23 07/05/23 07/04/23 History Allergies Allergy/AdvReac Type Severity Reaction Status Date / Time No Known Allergies Allergy Verified 07/05/23 09:48 Current Medications Generic Name Dose Route Start Last Admin Trade Name Freq PRN Reason Stop Dose Admin Acetaminophen 650 mg 07/05/23 16:31 07/06/23 00:33 Acetaminophen 325 Mg Tablet PO 650 mg Q6H PRN Administration Mild/Mod Pain Or Temp >/= 101 Apixaban 5 mg 07/05/23 18:00 07/08/23 08:19 Apixaban 5 Mg Tablet PO 5 mg BID JESS Administration Budesonide 0.5 mg 07/05/23 20:00 07/08/23 07:46 Budesonide 0.5 Mg/2 Ml Neb INHALATION Not Given BID.RESPIRATORY JESS Cilostazol 100 mg 07/05/23 18:00 07/08/23 08:19 Cilostazol 100 Mg Tablet PO 100 mg BID JESS Administration Amiodarone HCl/Dextrose 360 mg in 200 mls @ 0 mls/hr 07/06/23 13:35 07/08/23 07:54 Nexterone IV 0.5 mg/min .Q0M JESS 16.67 mls/hr Administration Protocol Per Protocol Metoprolol Tartrate 50 mg 07/05/23 18:00 07/08/23 08:18 Metoprolol Tartrate 50 Mg Tablet PO 50 mg BID JESS Administration Nicotine 1 patch 07/05/23 16:31 07/08/23 08:19 Nicotine 21 Mg Patch TRANSDERMA 1 patch DAILY JESS Administration Sertraline HCl 50 mg 07/06/23 06:00 07/08/23 06:00 Sertraline 50 Mg Tablet PO 50 mg QAM JESS Administration PFSH Acute 2 PFSH: Medical History (Updated 07/09/23 @ 16:56 by Soren Duong MD) Depression with anxiety Urinary, incontinence, stress female Gillette-Walker grade 3 cystocele Urolithiasis Benign essential HTN Bradycardia High risk medication use Hiatal hernia COPD (chronic obstructive pulmonary disease) Congestive heart failure Atrial fibrillation EKG from 10/07/2019 revealed revealed sinus bradycardia with a rate of 45 bpm. Chest pain Cystocele Recto-vaginal fistula Ureteral calculus Surgical History (Updated 07/08/23 @ 17:26 by Sabrina Benitez MD) Hx of bladder repair surgery Hx of total hysterectomy History of tubal ligation Hx of appendectomy History of cholecystectomy History of cardiac radiofrequency ablation Family History Grandfather Diabetes maternal Grandmother Diabetes maternal Stroke maternal Family/Other Diabetes maternal uncles Breast cancer maternal aunt, onset 40's Denies family history of Colon cancer Ovarian cancer Clotting disorder Hyperlipidemia Anesthesia complication Bleeding disorder Hypertension Uterine cancer Social History Smoking and tobacco/nicotine status: current every day tobacco/nicotine user cigarettes Packs smoked per day: 1 [ Other cigarette details: smoking over 50 years] Alcohol intake: never Substance/Drug Use: never Marital status: / Vitals/I&O/Wt Last Vital Signs Temp 98.0 F 07/08/23 08:44 Pulse 113 H 07/08/23 12:00 Resp 20 H 07/08/23 12:00 BP 135/74 07/08/23 12:00 Pulse Ox 95 07/08/23 12:00 O2 Del Method Room Air 07/08/23 12:00 07/08/23 07/08/23 07/08/23 06:59 14:59 22:59 Intake Total 679.444 / 679.444 Output Total 750 / 1750 Balance -750 / -709.444 679.444 / 679.444 Weight last 48 hrs Weight 174 lb Weight 172 lb 3.2 oz Physical Exam 2 Const: COMMON NORMALS: no acute distress, patient oriented x3 and alert G ENERAL APPEARANCE: cooperative, comfortable, well kempt and well hydrated HENMT: COMMON NORMALS: hearing grossly normal bilaterally, external ears normal and moist oral mucous membranes FACE & SINUS: normal facial exam N OSE: no Epistaxis present EXTERNAL EAR: Yes external ears normal MOUTH: l ip normal Eye: COMMON NORMALS: EOMs intact bilaterally and no scleral icterus GENERAL EYE: appearance normal, both eyes and all related structures ALIGNMENT: Yes alignment normal Neck/C-Spine: COMMON NORMALS: supple and no JVD GENERAL: Yes normal visual inspection and Yes trachea midline CAROTIDS: Yes normal carotid upstroke Lymph: LYMPHATIC: no lymphadenopathy noted Chest: COMMONS NORMALS: normal inspection of the chest and normal palpation of entire chest wall CHEST: Yes Symmetrical chest wall rise and No tenderness Resp: COMMON NORMALS: clear to auscultation bilaterally EFFORT & INSPECTION: Yes able to speak in complete sentences, No tachypneic, No respiratory distress, No pursed lip breathing, No labored and No Actively coughing AUSCULTATION: clear to auscultation bilaterally, no crackles, no rales, no rhonchi and no wheezes Cardio: COMMON NORMALS: no JVD, S1 normal heart sound present, S2 normal heart sound present and Peripheral pulses 2+ throughout PALPATION: normal PMI R ATE: tachycardic RHYTHM: abnormal rhythm irregularly irregular HEART SOUNDS: S1 normal heart sound present, S2 normal heart sound present, no click, no gallops and no murmurs BRUITS: no carotid bruits PERIPHERAL PULSES: P eripheral pulses 2+ throughout, radial pulses present, posterior tibial pulses present and dorsalis pedis present Extremity: GENERAL: No clubbing, No cyanosis, Yes edema and No pallor Neuro: COMMON NORMALS: patient oriented x3, CN's II-XII intact bilaterally and no focal motor deficits SENSORIUM/ORIENTATION: Yes alert Psych: COMMON NORMALS: Normal thought process present and speech normal A PPEARANCE: Yes well kempt SPEECH: Yes normal speech MOOD & AFFECT: Yes euthymic mood THOUGHT PROCESS: Normal thought process present THOUGHT CONTENT: Yes Normal thought content present Data 07/08/23 05:17 07/10/23 03:20 Other data: 10/18/22 Holter monitor CONCLUSION: 1.? The baseline rhythm was found to be normal sinus with an overall average heart rate of 72 beats per minute.? There were a total of 5067 ventricular ectopics and 36,011 supraventricular ectopics, comprising 0.76% and 5.37% respectively of the total heartbeats .? The episodes of narrow complex tachycardia where found to be short runs of paroxysmal atrial tachycardia. 2.? No significant pauses or bradycardias noted. 3.? No symptoms noted. 4.? No similar previous studies are available for comparison 05/08/22 Carotid Duplex LE BI ?Abnormal resting SHREYA 0.4 on the left side, suggesting severe ?peripheral artery disease, possibly at the aortoiliac level. ?Minimally diminished resting SHREYA 0.8 on the right side, ?suggesting mild peripheral artery disease. ?No similar previous studies are available for comparison [facility] SPECT CARDIAC STRESS TEST? ? 04/17/2019 #1. Myocardial perfusion imaging revealing patchy areas of persistent decreased tracer uptake, most likely represent attenuation artifacts. #2. Slightly diminished LV ejection fraction of 48%. #3. LV wall motion analysis revealing mild diffuse hypokinesia left ventricle. #4. Minimally dilated LV cavity. No significant coronary ischemia, based on the above findings. The above features may suggest a nonischemic form of cardiomyopathy A&P Assessment and plan (1) Atrial fibrillation with rapid ventricular response: She has previously undergone CV and was on amiodarone briefly for short duration and failed from what I can gather -She has undergone ablation once but did not stay in SR for long -Options are trial of anti-arrhythmics (amiodarone vs sotalol) and referral for another ablation -she is not doing well on rate control. 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 Duong. Patient would like to do that. (2) Congestive heart failure: Qualifiers: Heart failure chronicity: acute Heart failure type: diastolic Qualified Code(s): I50.31 - Acute diastolic (congestive) heart failure (3) Benign essential HTN: (4) Peripheral arterial occlusive disease: Plan PAT Bradycardia Coding Level of Care Code 44823 Diagnoses Atrial fibrillation with rapid ventricular response I48.91 Acute diastolic congestive heart failure I50.31 Heart failure chronicity: acute Heart failure type: diastolic Benign essential HTN I10 Peripheral arterial occlusive disease I77.9
--- NOTE | 2023-07-08 21:52 | P.PN_ITS ---
Subjective 2 Subjective: Denies chest pain or pressure. Heart rate has remain uncontrolled. Denies difficulty breathing. No orthopnea. No lower extremity edema. Vitals/I&O/Wt Last Vital Signs Temp 98.0 F 07/08/23 16:00 Pulse 112 H 07/08/23 20:42 Resp 19 H 07/08/23 20:42 BP 114/71 07/08/23 20:42 Pulse Ox 96 07/08/23 16:00 O2 Del Method Room Air 07/08/23 16:00 07/08/23 07/08/23 07/08/23 06:59 14:59 22:59 Intake Total 679.444 / 679.444 560 / 1239.444 Output Total 750 / 1750 Balance -750 / -709.444 679.444 / 679.444 560 / 1239.444 Weight last 48 hrs Weight 78.925 kg Weight 78.109 kg Physical Exam 2 Narrative: Sitting up at edge of bed. Will being visited by her son. Const: COMMON NORMALS: patient oriented x3 and alert GENERAL APPEARANCE: c ooperative ORIENTATION/CONSCIOUSNESS: Yes awake HENMT: COMMON NORMALS: oropharynx normal Neck/C-Spine: COMMON NORMALS: no JVD Resp: COMMON NORMALS: normal respiratory effort and clear to auscultation bilaterally AUSCULTATION: clear to auscultation bilaterally Cardio: COMMON NORMALS: no JVD, S1 normal heart sound present, S2 normal heart sound present and No murmurs present (Cardio) RATE: tachycardic RHYTHM: a bnormal rhythm irregularly irregular HEART SOUNDS: S1 normal heart sound present and S2 normal heart sound present GI: COMMON NORMALS: Normal to inspection, nondistended, normoactive bowel sounds present, Soft to palpation and non-tender PALPATION: Yes Soft to palpation Extremity: COMMON NORMALS: no joint enlargement and no pedal edema Neuro: COMMON NORMALS: patient oriented x3 and moves all extremities S ENSORIUM/ORIENTATION: Yes alert Skin: COMMON NORMALS: no rashes or lesions noted GENERAL SKIN EXAM: no rashes or lesions noted Data 07/08/23 05:17 07/08/23 05:17 A&P Assessment and plan (1) Atrial fibrillation with rapid ventricular response: Difficult to control atrial fibrillation, so far has not responded to metoprolol, diltiazem, trial of digoxin yesterday, on amiodarone currently, so far heart rate remains elevated above 110. continue amiodarone drip at this time. Discussed with cardiology, requesting consultation for additional assessment and management. Chronic A-fib. Has history of failed ablation and cardioversion in the past. At the moment no sign of CHF decompensation but at risk of tachycardia induced cardiomyopathy. Reviewed chemistry, noted potassium 3.8. Reviewed magnesium, noted 2.1. Recheck chemistry, magnesium. Reviewed echocardiogram, noted EF 55%. Mildly increased wall thickness. LA diameter 4.4. (2) Nicotine dependence: Nicotine patch Encourage abstinence (3) Benign essential HTN: Continue metoprolol. Goal blood pressure less than 140/90 mmHg. Hold/discontinue losartan. We may need to make more room, to adjust medication for rate control with further additions of metoprolol and/or addition of diltiazem Plan Other medical problems as outlined in past medical history Full code Apixaban for DVT prophylaxis will suffice as well as anticoagulation for atrial fibrillation Attestations 2 Medical Necessity Statement*: Continue admission for assessment management of difficult control atrial fibrillation with distant RVR. Diagnoses Atrial fibrillation with rapid ventricular response I48.91 Nicotine dependence F17.200 Benign essential HTN I10
[2023-07-09] VITALS (11 sets, daily range): BP systolic 105–137; BP diastolic 40–91; PULSE 67–125; RESP 16–30; TEMP 36.7–37.2; O2SAT 94–98; BMI 29.4
[2023-07-09 06:00] LABS: Anion Gap 14.3 (5-19); Blood Urea Nitrogen 12 mg/dL (8-23); Calcium 9.3 mg/dL (8.5-10.5); Carbon Dioxide 27 mmol/L (22-29); Chloride 105 mmol/L (98-107); Creatinine Clr Calc Pharmacy 62.7132; Glucose 109 mg/dL (65-115); Osmolality Calculated 294 mOsm/kg (285-295); Potassium 4.3 mmol/L (3.5-5.1); Sodium 142 mmol/L (136-145)
[2023-07-09 06:08] LABS: Magnesium 2.2 mg/dL (1.7-2.3); Phosphorus 3.3 mg/dL (2.5-4.5)
[2023-07-09] MEDS: sertraline 50 mg Tablet PO (06:22)
--- NOTE | 2023-07-09 08:56 | P.PN_ITS ---
Subjective 2 Subjective: Patient is admitted to hospital with complaints of palpitations and dizziness. She was found to be in atrial fibrillation with rapid ventricular rate. She was started on IV Cardizem. Because of the hypotension, it was discontinued. Currently she is on IV amiodarone. The heart rate still remains uncontrolled. Blood pressure has been running low. Today the blood pressure seems to be improving somewhat. She is mainly complaining of feeling tired. No other specific complaints. Medications: Medication Review Details: Current Medications Acetaminophen (Acetaminophen 325 Mg Tablet) 650 mg PO Q6H PRN PRN Reason: Mild/Mod Pain Or Temp >/= 101 Last Admin: 07/06/23 00:33 Dose: 650 mg Albuterol/Ipratropium (Ipratropium-Albuterol 3 Ml Neb) 3 ml INHALATION Q6H.RESP PRN PRN Reason: SHORTNESS OF BREATH Apixaban (Apixaban 5 Mg Tablet) 5 mg PO BID REPLACED BY [facility] Last Admin: 07/08/23 18:28 Dose: 5 mg Budesonide (Budesonide 0.5 Mg/2 Ml Neb) 0.5 mg INHALATION BID.RESPIRATORY REPLACED BY [facility] Last Admin: 07/09/23 08:44 Dose: Not Given Cilostazol (Cilostazol 100 Mg Tablet) 100 mg PO BID REPLACED BY [facility] Last Admin: 07/08/23 18:28 Dose: 100 mg Amiodarone HCl/Dextrose (Nexterone) 360 mg in 200 mls @ 0 mls/hr IV .Q0M REPLACED BY [facility]; Protocol Last Admin: 07/08/23 21:15 Dose: 0.5 mg/min, 16.67 mls/hr Metoprolol Tartrate (Metoprolol Tartrate 50 Mg Tablet) 50 mg PO BID REPLACED BY [facility] Last Admin: 07/08/23 18:28 Dose: 50 mg Nicotine (Nicotine 21 Mg Patch) 1 patch TRANSDERMA DAILY REPLACED BY [facility] Last Admin: 07/08/23 08:19 Dose: 1 patch Ondansetron HCl (Ondansetron 2 Mg/Ml Sdv 2 Ml) 4 mg IVP Q6H PRN PRN Reason: vomiting, or N/V if npo Sertraline HCl (Sertraline 50 Mg Tablet) 50 mg PO QAM REPLACED BY [facility] Last Admin: 07/09/23 06:22 Dose: 50 mg Vitals/I&O/Wt Last Vital Signs Temp 98.1 F 07/09/23 08:00 Pulse 125 H 07/09/23 08:00 Resp 16 07/09/23 08:00 BP 135/84 07/09/23 08:00 Pulse Ox 98 07/09/23 08:00 O2 Del Method Room Air 07/09/23 08:00 07/08/23 07/09/23 07/09/23 22:59 06:59 14:59 Intake Total 560 / 1239.444 Output Total 1500 / 1500 1000 / 2500 Balance -940 / -260.556 -1000 / -1260.556 Weight last 48 hrs Weight 171 lb 5 oz Weight 174 lb Physical Exam 2 Narrative: GENERAL: The patient is alert and oriented times three. Not in any acute distress. HEENT: No significant pallor, icterus or lymphadenopathy.Oral cavity: There are no mucous membrane lesions. NECK: Trachea appears to be central. No masses noted. No JVD or thyromegaly appreciated. RESPIRATORY: Chest is symmetrical. No intercostals muscle retraction or any accessory muscle activation. There is no chest wall tenderness. Breath sounds are heard bilaterally. No rales or rhonchi heard. No evidence of any consolidation. BREASTS: Deferred. HEART: The heart sounds are normal. No S3 or S4. No significant murmurs. No pericardial rub ABDOMEN: No vessel pulsations or distention. No tenderness. No organomegaly appreciated. Bowel sounds are normally heard. : Deferred. RECTAL: Deferred. LYMPHATIC: No lymphadenopathy noted in the neck. EXTREMITIES: No edema or cyanosis. No clubbing. MUSCULOSKELETAL: No acute joint deformities or swelling SKIN: There are no significant rashes or ecchymosis NEUROPSYCHIATRIC: The patient is alert and oriented x3. Appears to be in a good mood. No tremors or rigidity noted. Data 07/08/23 05:17 07/09/23 05:05 Other Labs: Laboratory Last Values WBC 6.25 10^3/uL (3.29-11.43) 07/08/23 05:17 RBC 4.54 10^6/uL (3.85-5.65) 07/08/23 05:17 Hgb 13.50 g/dL (11.27-16.99) 07/08/23 05:17 Hct 43.2 % (36-47) 07/08/23 05:17 MCV 95.2 fl (85-98) 07/08/23 05:17 MCH 29.7 pg (27-33) 07/08/23 05:17 MCHC 31.3 g/dL (30-55) 07/08/23 05:17 RDW 13.4 % (12.1-15.1) 07/08/23 05:17 Plt Count 189 10^3/cmm (157-399) 07/08/23 05:17 MPV 11.7 fL (7.4-10.4) H 07/08/23 05:17 Neut % (Auto) 55.8 % 07/08/23 05:17 Lymph % (Auto) 26.4 % 07/08/23 05:17 Andrews % (Auto) 13.0 % 07/08/23 05:17 Eos % (Auto) 4.0 % 07/08/23 05:17 Baso % (Auto) 0.6 % 07/08/23 05:17 Neut # (Auto) 3.49 10^3/uL (1.8-7.7) 07/08/23 05:17 Lymph # (Auto) 1.7 10^3/uL (0.8-4.8) 07/08/23 05:17 Andrews # (Auto) 0.8 10^3/uL (0.2-0.9) 07/08/23 05:17 Eos # (Auto) 0.3 10^3/uL (0.0-0.8) 07/08/23 05:17 Baso # (Auto) 0.0 10^3/uL (0.0-0.1) 07/08/23 05:17 Nucleated RBC % (auto) 0 % 07/08/23 05:17 Nucleated RBCs # 0.0 /100WBC 07/08/23 05:17 Sodium 142 mmol/L (136-145) 07/09/23 05:05 Potassium 4.3 mmol/L (3.5-5.1) 07/09/23 05:05 Chloride 105 mmol/L (98-107) 07/09/23 05:05 Carbon Dioxide 27 mmol/L (22-29) 07/09/23 05:05 Anion Gap 14.3 (5-19) 07/09/23 05:05 BUN 12 mg/dL (8-23) 07/09/23 05:05 Creatinine 0.8 mg/dL (0.5-0.9) 07/09/23 05:05 GFR Calculation Not Reportable 07/09/23 05:05 Glucose 109 mg/dL (65-115) 07/09/23 05:05 Estimat Average Glucose 117 07/07/23 01:17 Hemoglobin A1c 5.7 % (4.0-6.0) 07/07/23 01:17 Calculated Osmolality 294 mOsm/kg (285-295) 07/09/23 05:05 Calcium 9.3 mg/dL (8.5-10.5) 07/09/23 05:05 Phosphorus 3.3 mg/dL (2.5-4.5) 07/09/23 05:05 Magnesium 2.2 mg/dL (1.7-2.3) 07/09/23 05:05 Total Bilirubin 0.3 mg/dL (0.15-1.2) 07/08/23 05:17 AST 16 U/L (0-32) 07/08/23 05:17 ALT 13 U/L (0-33) 07/08/23 05:17 Alkaline Phosphatase 87 U/L (35-105) 07/08/23 05:17 Troponin T Baseline < 6 ng/L (0-10) 07/05/23 09:17 Troponin T 120 Minute 6.29 ng/L (0-10) 07/05/23 11:06 Delta Troponin T 0.93435 ABS# (0-10) 07/05/23 11:06 Troponin T Hi Sens 6Hr 6.00 ng/L (0-10) 07/05/23 15:38 Troponin T Hi Sens 6Hr Delta 0.62802 ng/L (0-12) 07/05/23 15:38 Total Protein 6.1 g/dL (6.6-8.7) L 07/08/23 05:17 Albumin 4.0 g/dL (3.5-5.2) 07/08/23 05:17 Globulin 2.1 g/dL (1.3-4.6) 07/08/23 05:17 Triglycerides 96 mg/dL (0-150) 07/07/23 01:17 Cholesterol 201 mg/dL (0-200) H 07/07/23 01:17 LDL Cholesterol, Calc 133 mg/dL (50-129) H 07/07/23 01:17 Total VLDL Cholesterol 19 mg/dL (0-30) 07/07/23 01:17 HDL Cholesterol 49 mg/dL (60-100) L 07/07/23 01:17 Cholesterol/HDL Ratio 4.10 mg/dL (0.0-4.40) 07/07/23 01:17 Lipase 20 U/L (13-60) 07/05/23 09:17 Vitamin B12 2000 pg/mL (232-1245) H 07/06/23 03:25 Folate > 20.0 ng/mL (4.8-37.3) 07/07/23 01:17 TSH 1.57 uIU/mL (0.27-4.20) 07/06/23 03:25 Urine Color Yellow (Yellow) 07/05/23 10:01 Urine Appearance Clear (CLEAR) 07/05/23 10:01 Urine pH 6 (5-7) 07/05/23 10:01 Ur Specific [place] 1.020 (1.005-1.030) 07/05/23 10:01 Urine Protein Neg (Negative) 07/05/23 10:01 Urine Glucose (UA) Norm (Normal) 07/05/23 10:01 Urine Ketones Negative (Negative) 07/05/23 10:01 Urine Blood Neg (Negative) 07/05/23 10:01 Urine Nitrate Negative (Negative) 07/05/23 10:01 Urine Bilirubin Neg (Negative) 07/05/23 10:01 Urine Urobilinogen Norm mg/dL (Negative) 07/05/23 10:01 Ur Leukocyte Esterase Negative (Negative) 07/05/23 10:01 A&P Assessment and plan (1) Atrial fibrillation with rapid ventricular response: In view of the patient's symptomatic atrial fibrillation with rapid ventricular rate, not responding to the current medications, it may be appropriate to go ahead with a cardioversion. The risk and benefits were discussed with the patient. The risk of malignant arrhythmia, CVA, heart blocks, aspiration and other concomitant complications were explained to the patient in detail which is understood well and consented to proceed (2) Peripheral arterial occlusive disease: The symptoms are stable. Will continue on the current management (3) Benign essential HTN: The blood pressure is soft. She was hypotensive for a while. Currently the blood pressure seems to be improving (4) Congestive heart failure: Heart failure seems to be compensated. May be carefully treated with IV diuretics. Qualifiers: Heart failure chronicity: acute Heart failure type: diastolic Qualified Code(s): I50.31 - Acute diastolic (congestive) heart failure (5) Nicotine dependence: Strongly advised to quit smoking Qualifiers: Nicotine product type: cigarettes Substance use status: other nicotine- induced disorder Qualified Code(s): F17.218 - Nicotine dependence, cigarettes, with other nicotine-induced disorders Plan Patient may benefit from a repeat ablation procedure. I will be contacting Dr. Tijerina at the [facility]. Based on the clinical response, further recommendations will be made. Patient may be kept on amiodarone at this point. May be switched on to p.o. amiodarone, once the IV infusion is finished Attestations 2 Medical Necessity Statement*: Deferred to the primary Coding Level of Care Code 37963 Diagnoses Atrial fibrillation with rapid ventricular response I48.91 Peripheral arterial occlusive disease I77.9 Benign essential HTN I10 Acute diastolic congestive heart failure I50.31 Heart failure chronicity: acute Heart failure type: diastolic Cigarette nicotine dependence with other nicotine-induced disorder F17.218 Nicotine product type: cigarettes Substance use status: other nicotine-induced disorder
[2023-07-09] MEDS: apixaban 5 mg Tablet PO ×2 (09:22→19:13)
[2023-07-09] MEDS: cilostazol 100 mg Tablet PO ×2 (09:22→19:13)
[2023-07-09] MEDS: metoprolol tartrate 50 mg Tablet PO ×2 (09:22→19:13)
[2023-07-09] MEDS: nicotine 21 mg Patch 1 PATCH TRANSDERMA (09:24)
--- NOTE | 2023-07-09 14:24 | ANES.PREANE2 ---
Pre-Anesthetic Assessment Height/Weight: Height 1.63 m Weight 77.706 kg Temp Pulse Resp BP Pulse Ox O2 Del Method 98.1 F 109 H 24 H 135/84 98 Room Air 07/09/23 08:00 07/09/23 14:02 07/09/23 13:03 07/09/23 13:03 07/09/23 08:00 07/09/23 08:00 Cardioversion Familial anesthetic complications: none Was Beta Camron taken within 24 hours: Yes Was Clonidine taken within 24 hours: N/A Social Tobacco and No alcohol Exam alert, oriented x 3 and clear to auscultation bilaterally Airway Submandibular: within normal limits Cervical ROM: within normal limits Mallampati: Class II Dentition: false Pulmonary Chronic Obstructive Pulmonary Disease CV/HEM Atrial Fibrillation, Arrythmia, Hypertension and Peripheral Vascular Disease CONCLUSIONS 1. Normal left ventricular size, systolic function and mildly increased wall thickness, with no regional wall motion abnormalities. Left ventricular ejection fraction is estimated at 55 %. 2. When compared to study dated 04/14/2019, left ankle systolic function may have improved. Sabrina Benitez MD (Electronically Signed) Final Date: 08 July 2023 Metabolic Obese Anesthetic Plan ASA status: 3 Anesthesia: MAC Medications/Allergies Home Medications Medication Instructions Recorded Confirmed Last Taken Type apixaban 5 mg tablet (Eliquis) 5 mg PO BID 10/07/19 07/05/23 07/04/23 History loratadine 10 mg tablet (Claritin) 10 mg PO QAM 10/07/19 07/05/23 07/04/23 History vitamin B complex-vitamin B12 See Rx Instructions .Route .COMPLEX 04/07/21 07/05/23 04/11/21 History 1,200 mcg/mL sublingual drops cilostazol 100 mg tablet 100 mg PO BID #180 tabs 09/13/22 07/05/23 07/04/23 Rx metoprolol tartrate 25 mg tablet 50 mg (2 x 25 mg) PO BID #360 tabs 11/05/22 07/05/23 07/04/23 Rx albuterol sulfate 90 mcg/actuation 2 puff inhalation Q6H PRN 01/08/23 07/05/23 Unknown History aerosol inhaler shortness of breath or wheezing B6 0.85 mg-folic 200 1 tab PO QAM 07/05/23 07/05/23 07/04/23 History [id number] oral chewable tablet (Neuriva Plus) ascorbic acid (vitamin C) 1,000 mg 1,000 mg PO QAM 07/05/23 07/05/23 07/04/23 History tablet (Vitamin C) cholecalciferol (vitamin D3) 25 25 mcg PO QAM 07/05/23 07/05/23 07/04/23 History mcg (1,000 unit) capsule (Vitamin D3) fluticasone furoate 200 2 ea inhalation QAM 07/05/23 07/05/23 07/04/23 History mcg-vilanterol 25 mcg/dose see pharmacy inhalation powder (Breo Ellipta) comment ibuprofen 200 mg tablet 800 mg PO Q6H PRN Pain 07/05/23 07/05/23 Unknown History losartan 50 mg tablet 50 mg PO QAM 07/05/23 07/05/23 07/04/23 History multivitamin 1 tab PO QAM 07/05/23 07/05/23 07/04/23 History sertraline 50 mg tablet 50 mg PO QAM 07/05/23 07/05/23 07/04/23 History Allergies Allergy/AdvReac Type Severity Reaction Status Date / Time No Known Allergies Allergy Verified 07/05/23 09:48 Current Medications Generic Name Dose Route Start Last Admin Trade Name Freq PRN Reason Stop Dose Admin Acetaminophen 650 mg 07/05/23 16:31 07/06/23 00:33 Acetaminophen 325 Mg Tablet PO 650 mg Q6H PRN Administration Mild/Mod Pain Or Temp >/= 101 Apixaban 5 mg 07/05/23 18:00 07/09/23 09:22 Apixaban 5 Mg Tablet PO 5 mg BID JESS Administration Budesonide 0.5 mg 07/05/23 20:00 07/09/23 08:44 Budesonide 0.5 Mg/2 Ml Neb INHALATION Not Given BID.RESPIRATORY JESS Cilostazol 100 mg 07/05/23 18:00 07/09/23 09:22 Cilostazol 100 Mg Tablet PO 100 mg BID JESS Administration Amiodarone HCl/Dextrose 360 mg in 200 mls @ 0 mls/hr 07/06/23 13:35 07/09/23 11:40 Nexterone IV 1 mg/min .Q0M JESS 33.33 mls/hr Administration Protocol Per Protocol Metoprolol Tartrate 50 mg 07/05/23 18:00 07/09/23 09:22 Metoprolol Tartrate 50 Mg Tablet PO 50 mg BID JESS Administration Nicotine 1 patch 07/05/23 16:31 07/09/23 09:24 Nicotine 21 Mg Patch TRANSDERMA 1 patch DAILY JESS Administration Sertraline HCl 50 mg 07/06/23 06:00 07/09/23 06:22 Sertraline 50 Mg Tablet PO 50 mg QAM JESS Administration [facility] Anesthesia Medical History Depression with anxiety Urinary, incontinence, stress female Edinburgh-Walker grade 3 cystocele Urolithiasis Benign essential HTN Bradycardia High risk medication use Hiatal hernia COPD (chronic obstructive pulmonary disease) Congestive heart failure Atrial fibrillation EKG from 10/07/2019 revealed revealed sinus bradycardia with a rate of 45 bpm. Chest pain Cystocele Recto-vaginal fistula Ureteral calculus Surgical History (Updated 07/08/23 @ 17:26 by Sabrina Benitez MD) Hx of bladder repair surgery Hx of total hysterectomy History of tubal ligation Hx of appendectomy History of cholecystectomy History of cardiac radiofrequency ablation Family History Grandfather Diabetes maternal Grandmother Diabetes maternal Stroke maternal Family/Other Diabetes maternal uncles Breast cancer maternal aunt, onset 40's Denies family history of Colon cancer Ovarian cancer Clotting disorder Hyperlipidemia Anesthesia complication Bleeding disorder Hypertension Uterine cancer Social History Smoking and tobacco/nicotine status: current every day tobacco/nicotine user cigarettes Packs smoked per day: 1 [ Other cigarette details: smoking over 50 years] Alcohol intake: never Substance/Drug Use: never Marital status: / Data Anesthesia 07/08/23 05:17 07/09/23 05:05 Short CBC 07/08/23 Range/Units 05:17 WBC 6.25 (3.29-11.43) 10^3/uL Hgb 13.50 (11.27-16.99) g/dL Hct 43.2 (36-47) % MCV 95.2 (85-98) fl Plt Count 189 (157-399) 10^3/cmm Neut % (Auto) 55.8 % Neut # (Auto) 3.49 (1.8-7.7) 10^3/uL BMP 07/08/23 07/09/23 05:17 05:05 Sodium 140 142 Potassium 3.8 4.3 Chloride 104 105 Carbon Dioxide 22 27 BUN 13 12 Creatinine 0.9 0.8 Glucose 121 H 109 Calcium 9.1 9.3 Liver Function 07/08/23 Range/Units 05:17 Total Bilirubin 0.3 (0.15-1.2) mg/dL AST 16 (0-32) U/L ALT 13 (0-33) U/L Alkaline Phosphatase 87 (35-105) U/L Albumin 4.0 (3.5-5.2) g/dL Cardiac Studies: Echocardiogram 07/08/23 Holter Monitor 10/18/22
--- NOTE | 2023-07-09 16:00 | PC.NURSE ---
amiodarone paused as patient was unable to tolerate it. Dr Duong notified.
--- NOTE | 2023-07-09 16:55 | ANE.PACU2 ---
Inpatient post-anesthesia follow up: Airway intact: Yes Vital signs: Temperature 98.1 F Pulse Rate 109 Respiratory Rate 24 Blood Pressure 135/84 Pulse Oximetry 98 Oxygen Delivery Me thod Room Air Oxygen Flow Rate Fraction of Inspir ed Oxygen Hydration adequate: Yes Nausea and vomiting: No Pain level: 2 Mental status: Baseline
--- NOTE | 2023-07-09 17:00 | P.PCN_ITS ---
Procedure Note: Procedure: Electrical cardioversion report Preprocedure diagnoses: Atrial fibrillation/hypotension. Brief history: 72-year-old white female with history of intermittent atrial fibrillation, status post radiofrequency ablation, presenting with an episode of symptomatic atrial fibrillation with rapid ventricular rate. She has been taking the metoprolol. She was given IV Cardizem in the emergency room. Because of the hypotension, this was discontinued. She was started on amiodarone. She continued to be in atrial fibrillation with rapid ventricular rate. She is complaining of feeling tired and weak. For further management of her condition, an single cardioversion was recommended. Location of the procedure: Cardiac stepdown unit, room #104 Electrode application: Anteroposterior Electrical energy applied: 120 J of biphasic current Number of shocks: Single Final rhythm: Sinus bradycardia with a rate of 56 bpm and occasional PACs Final blood pressure: 117/82 Complications: None Recommendation(s): Continue on the amiodarone, switch to p.o., once the IV infusion is completed Coding Level of Care Code Acute Code for [facility] Fwkatharine
--- NOTE | 2023-07-09 21:28 | P.PN_ITS ---
Subjective 2 Subjective: Subjectively she is feeling somewhat better today. Denies chest pain or pressure. No orthopnea. No lower extremity edema. Continues in atrial fibrillation with RVR. She tells me about plans to have with cardiology for cardioversion at night, as well as for follow-up in [place] for reevaluation by EP. Vitals/I&O/Wt Last Vital Signs Temp 98.6 F 07/09/23 20:12 Pulse 68 07/09/23 20:38 Resp 16 07/09/23 20:38 BP 126/40 07/09/23 20:12 Pulse Ox 97 07/09/23 20:38 O2 Del Method Room Air 07/09/23 20:38 07/09/23 07/09/23 07/09/23 06:59 14:59 22:59 Intake Total 560 / 560 384.43 / 944.43 Output Total 1000 / 2500 Balance -1000 / -1260.556 560 / 560 384.43 / 944.43 Weight last 48 hrs Weight 77.706 kg Weight 78.925 kg Physical Exam 2 Narrative: Sitting up at edge of bed. Visited by her son. Const: COMMON NORMALS: patient oriented x3 and alert GENERAL APPEARANCE: c ooperative ORIENTATION/CONSCIOUSNESS: Yes awake OTHER: In good spirits. HENMT: COMMON NORMALS: oropharynx normal Neck/C-Spine: COMMON NORMALS: no JVD Resp: COMMON NORMALS: normal respiratory effort and clear to auscultation bilaterally AUSCULTATION: clear to auscultation bilaterally Cardio: COMMON NORMALS: no JVD, S1 normal heart sound present, S2 normal heart sound present and No murmurs present (Cardio) RATE: tachycardic RHYTHM: a bnormal rhythm irregularly irregular HEART SOUNDS: S1 normal heart sound present and S2 normal heart sound present GI: COMMON NORMALS: Normal to inspection, nondistended, normoactive bowel sounds present, Soft to palpation and non-tender PALPATION: Yes Soft to palpation Extremity: COMMON NORMALS: no joint enlargement and no pedal edema Neuro: COMMON NORMALS: patient oriented x3 and moves all extremities S ENSORIUM/ORIENTATION: Yes alert Skin: COMMON NORMALS: no rashes or lesions noted GENERAL SKIN EXAM: no rashes or lesions noted Data 07/08/23 05:17 07/09/23 05:05 A&P Assessment and plan (1) Atrial fibrillation with rapid ventricular response: Planned cardioversion tonight for difficult to control persistent A-fib with RVR. Discussed with cardiology, successful cardioversion to sinus rhythm. Cardiology documentation reviewed. Continue amiodarone. Now in sinus rhythm. At risk of bradycardia. Switch to p.o. Monitor overnight. Reassess in the morning With possible discharge, cardiology will also refer for follow-up with the EP in [place]. Follow-up with PCP to monitor for amiodarone related complications. Chronic A-fib. Has history of failed ablation and cardioversion in the past. At the moment no sign of CHF decompensation but at risk of tachycardia induced cardiomyopathy. Reviewed chemistry, and magnesium, potassium magnesium noted WNL. Renal function WNL. Echocardiogram, noted EF 55%. Mildly increased wall thickness. LA diameter 4.4. Discussed with casework manager. (2) Nicotine dependence: Nicotine patch Encourage abstinence Qualifiers: Nicotine product type: cigarettes Substance use status: other nicotine- induced disorder Qualified Code(s): F17.218 - Nicotine dependence, cigarettes, with other nicotine-induced disorders (3) Benign essential HTN: Continue metoprolol. Goal blood pressure less than 140/90 mmHg. Hold/discontinue losartan. We may need to make more room, to adjust medication for rate control with further additions of metoprolol and/or addition of diltiazem Plan Other medical problems as outlined in past medical history Full code Apixaban for DVT prophylaxis will suffice as well as anticoagulation for atrial fibrillation Attestations 2 Medical Necessity Statement*: Continue admission for assessment and management of difficult to control A-fib with RVR. Diagnoses Atrial fibrillation with rapid ventricular response I48.91 Cigarette nicotine dependence with other nicotine-induced disorder F17.218 Nicotine product type: cigarettes Substance use status: other nicotine-induced disorder Benign essential HTN I10
[2023-07-09] MEDS: amiodarone 200 mg Tablet 400 MG PO (22:20)
[2023-07-09] MEDS: acetaminophen 325 mg Tablet 650 MG PO (22:26)
[2023-07-10 03:51] LABS: Anion Gap 14.3 (5-19); Blood Urea Nitrogen 15 mg/dL (8-23); Calcium 9.2 mg/dL (8.5-10.5); Carbon Dioxide 24 mmol/L (22-29); Chloride 107 mmol/L (98-107); Glucose 103 mg/dL (65-115); Osmolality Calculated 293 mOsm/kg (285-295); Potassium 4.3 mmol/L (3.5-5.1); Sodium 141 mmol/L (136-145)
[2023-07-10 04:02] VITALS: BP 117/40; PULSE 62; RESP 16; O2SAT 96
[2023-07-10 05:26] VITALS: PULSE 64
[2023-07-10 06:00] VITALS: BMI 29.8
[2023-07-10] MEDS: sertraline 50 mg Tablet PO (06:28)
[2023-07-10 07:28] VITALS: BP 139/55; PULSE 62; RESP 16; TEMP 36.4; O2SAT 97
[2023-07-10 08:00] VITALS: PULSE 67; RESP 16; O2SAT 96
--- NOTE | 2023-07-10 09:16 | PC.SOCIAL ---
IMM Updated Updated pt on IMM. No questions voiced. Provided pt a copy. Initialed, dated, & timed copy in chart.
[2023-07-10] MEDS: metoprolol tartrate 50 mg Tablet PO (09:22)
[2023-07-10] MEDS: amiodarone 200 mg Tablet 400 MG PO (09:22)
[2023-07-10] MEDS: cilostazol 100 mg Tablet PO (09:22)
[2023-07-10] MEDS: apixaban 5 mg Tablet PO (09:22)
[2023-07-10] MEDS: nicotine 21 mg Patch 1 PATCH TRANSDERMA (09:23)
[2023-07-10 11:32] VITALS: BP 135/54; PULSE 56; RESP 16; TEMP 36.7; O2SAT 99
--- NOTE | 2023-07-10 13:17 | PM.PN ---
Subjective Subjective: Electrical cardioversion yesterday. She was converted to sinus rhythm. She remains in sinus rhythm with occasional PACs. No recurrence of atrial fibrillation since the cardioversion. She is currently on p.o. amiodarone 400 mg p.o. twice daily. Medications: Medication Review Details: Current Medications Acetaminophen (Acetaminophen 325 Mg Tablet) 650 mg PO Q6H PRN PRN Reason: Mild/Mod Pain Or Temp >/= 101 Last Admin: 07/09/23 22:26 Dose: 650 mg Albuterol/Ipratropium (Ipratropium-Albuterol 3 Ml Neb) 3 ml INHALATION Q6H.RESP PRN PRN Reason: SHORTNESS OF BREATH Amiodarone HCl (Amiodarone 200 Mg Tablet) 400 mg PO BID [facility] Last Admin: 07/10/23 09:22 Dose: 400 mg Apixaban (Apixaban 5 Mg Tablet) 5 mg PO BID [facility] Last Admin: 07/10/23 09:22 Dose: 5 mg Budesonide (Budesonide 0.5 Mg/2 Ml Neb) 0.5 mg INHALATION BID.RESPIRATORY [facility] Last Admin: 07/10/23 07:55 Dose: Not Given Cilostazol (Cilostazol 100 Mg Tablet) 100 mg PO BID [facility] Last Admin: 07/10/23 09:22 Dose: 100 mg Sodium Chloride (Sodium Chloride 0.9%) 1,000 mls @ 0 mls/hr IV .Q0M [facility] Metoprolol Tartrate (Metoprolol Tartrate 50 Mg Tablet) 50 mg PO BID [facility] Last Admin: 07/10/23 09:22 Dose: 50 mg Nicotine (Nicotine 21 Mg Patch) 1 patch TRANSDERMA DAILY [facility] Last Admin: 07/10/23 09:23 Dose: 1 patch Ondansetron HCl (Ondansetron 2 Mg/Ml Sdv 2 Ml) 4 mg IVP Q6H PRN PRN Reason: vomiting, or N/V if npo Sertraline HCl (Sertraline 50 Mg Tablet) 50 mg PO QAM [facility] Last Admin: 07/10/23 06:28 Dose: 50 mg Vitals/I&O/Wt Last Vital Signs Temp 98.0 F 07/10/23 11:32 Pulse 56 L 07/10/23 11:32 Resp 16 07/10/23 11:32 BP 135/54 07/10/23 11:32 Pulse Ox 99 07/10/23 11:32 O2 Del Method Room Air 07/10/23 11:32 07/09/23 07/10/23 07/10/23 22:59 06:59 14:59 Intake Total 1034.43 / 1594.43 250 / 1844.43 360 / 360 Output Total 1000 / 1000 Balance 34.43 / 594.43 250 / 844.43 360 / 360 Weight last 48 hrs Weight 174 lb 1 oz Weight 171 lb 5 oz Physical Exam Narrative: GENERAL: The patient is alert and oriented times three. Not in any acute distress. HEENT: No significant pallor, icterus or lymphadenopathy.Oral cavity: There are no mucous membrane lesions. NECK: Trachea appears to be central. No masses noted. No JVD or thyromegaly appreciated. RESPIRATORY: Chest is symmetrical. No intercostals muscle retraction or any accessory muscle activation. There is no chest wall tenderness. Breath sounds are heard bilaterally. No rales or rhonchi heard. No evidence of any consolidation. BREASTS: Deferred. HEART: The heart sounds are normal. No S3 or S4. No significant murmurs. No pericardial rub ABDOMEN: No vessel pulsations or distention. No tenderness. No organomegaly appreciated. Bowel sounds are normally heard. : Deferred. RECTAL: Deferred. LYMPHATIC: No lymphadenopathy noted in the neck. EXTREMITIES: No edema or cyanosis. No clubbing. MUSCULOSKELETAL: No acute joint deformities or swelling SKIN: There are no significant rashes or ecchymosis NEUROPSYCHIATRIC: The patient is alert and oriented x3. Appears to be in a good mood. No tremors or rigidity noted. Data 07/08/23 05:17 07/10/23 03:20 Other Labs: Laboratory Last Values WBC 6.25 10^3/uL (3.29-11.43) 07/08/23 05:17 RBC 4.54 10^6/uL (3.85-5.65) 07/08/23 05:17 Hgb 13.50 g/dL (11.27-16.99) 07/08/23 05:17 Hct 43.2 % (36-47) 07/08/23 05:17 MCV 95.2 fl (85-98) 07/08/23 05:17 MCH 29.7 pg (27-33) 07/08/23 05:17 MCHC 31.3 g/dL (30-55) 07/08/23 05:17 RDW 13.4 % (12.1-15.1) 07/08/23 05:17 Plt Count 189 10^3/cmm (157-399) 07/08/23 05:17 MPV 11.7 fL (7.4-10.4) H 07/08/23 05:17 Neut % (Auto) 55.8 % 07/08/23 05:17 Lymph % (Auto) 26.4 % 07/08/23 05:17 [place] % (Auto) 13.0 % 07/08/23 05:17 Eos % (Auto) 4.0 % 07/08/23 05:17 Baso % (Auto) 0.6 % 07/08/23 05:17 Neut # (Auto) 3.49 10^3/uL (1.8-7.7) 07/08/23 05:17 Lymph # (Auto) 1.7 10^3/uL (0.8-4.8) 07/08/23 05:17 [place] # (Auto) 0.8 10^3/uL (0.2-0.9) 07/08/23 05:17 Eos # (Auto) 0.3 10^3/uL (0.0-0.8) 07/08/23 05:17 Baso # (Auto) 0.0 10^3/uL (0.0-0.1) 07/08/23 05:17 Nucleated RBC % (auto) 0 % 07/08/23 05:17 Nucleated RBCs # 0.0 /100WBC 07/08/23 05:17 Sodium 141 mmol/L (136-145) 07/10/23 03:20 Potassium 4.3 mmol/L (3.5-5.1) 07/10/23 03:20 Chloride 107 mmol/L (98-107) 07/10/23 03:20 Carbon Dioxide 24 mmol/L (22-29) 07/10/23 03:20 Anion Gap 14.3 (5-19) 07/10/23 03:20 BUN 15 mg/dL (8-23) 07/10/23 03:20 Creatinine 0.8 mg/dL (0.5-0.9) 07/10/23 03:20 GFR Calculation Not Reportable 07/10/23 03:20 Glucose 103 mg/dL (65-115) 07/10/23 03:20 Estimat Average Glucose 117 07/07/23 01:17 Hemoglobin A1c 5.7 % (4.0-6.0) 07/07/23 01:17 Calculated Osmolality 293 mOsm/kg (285-295) 07/10/23 03:20 Calcium 9.2 mg/dL (8.5-10.5) 07/10/23 03:20 Phosphorus 3.3 mg/dL (2.5-4.5) 07/09/23 05:05 Magnesium 2.2 mg/dL (1.7-2.3) 07/09/23 05:05 Total Bilirubin 0.3 mg/dL (0.15-1.2) 07/08/23 05:17 AST 16 U/L (0-32) 07/08/23 05:17 ALT 13 U/L (0-33) 07/08/23 05:17 Alkaline Phosphatase 87 U/L (35-105) 07/08/23 05:17 Troponin T Baseline < 6 ng/L (0-10) 07/05/23 09:17 Troponin T 120 Minute 6.29 ng/L (0-10) 07/05/23 11:06 Delta Troponin T 0.42938 ABS# (0-10) 07/05/23 11:06 Troponin T Hi Sens 6Hr 6.00 ng/L (0-10) 07/05/23 15:38 Troponin T Hi Sens 6Hr Delta 0.85905 ng/L (0-12) 07/05/23 15:38 Total Protein 6.1 g/dL (6.6-8.7) L 07/08/23 05:17 Albumin 4.0 g/dL (3.5-5.2) 07/08/23 05:17 Globulin 2.1 g/dL (1.3-4.6) 07/08/23 05:17 Triglycerides 96 mg/dL (0-150) 07/07/23 01:17 Cholesterol 201 mg/dL (0-200) H 07/07/23 01:17 LDL Cholesterol, Calc 133 mg/dL (50-129) H 07/07/23 01:17 Total VLDL Cholesterol 19 mg/dL (0-30) 07/07/23 01:17 HDL Cholesterol 49 mg/dL (60-100) L 07/07/23 01:17 Cholesterol/HDL Ratio 4.10 mg/dL (0.0-4.40) 07/07/23 01:17 Lipase 20 U/L (13-60) 07/05/23 09:17 Vitamin B12 2000 pg/mL (232-1245) H 07/06/23 03:25 Folate > 20.0 ng/mL (4.8-37.3) 07/07/23 01:17 TSH 1.57 uIU/mL (0.27-4.20) 07/06/23 03:25 Urine Color Yellow (Yellow) 07/05/23 10:01 Urine Appearance Clear (CLEAR) 07/05/23 10:01 Urine pH 6 (5-7) 07/05/23 10:01 Ur Specific [place] 1.020 (1.005-1.030) 07/05/23 10:01 Urine Protein Neg (Negative) 07/05/23 10:01 Urine Glucose (UA) Norm (Normal) 07/05/23 10:01 Urine Ketones Negative (Negative) 07/05/23 10:01 Urine Blood Neg (Negative) 07/05/23 10:01 Urine Nitrate Negative (Negative) 07/05/23 10:01 Urine Bilirubin Neg (Negative) 07/05/23 10:01 Urine Urobilinogen Norm mg/dL (Negative) 07/05/23 10:01 Ur Leukocyte Esterase Negative (Negative) 07/05/23 10:01 A&P Assessment and plan (1) Atrial fibrillation with rapid ventricular response: Patient status post electrical cardioversion. Currently remaining in sinus rhythm with PACs. She is on amiodarone 400 mg p.o. twice daily. May continue the same. Continue on other medications as it is. (2) Peripheral arterial occlusive disease: The symptoms are stable. Will continue on the current management (3) Benign essential HTN: The blood pressure is elevated. Patient may be placed back on the losartan. (4) Congestive heart failure: Heart failure seems to be compensated. May continue on the current management. Qualifiers: Heart failure type: diastolic Heart failure chronicity: acute Qualified Code(s): I50.31 - Acute diastolic (congestive) heart failure (5) Nicotine dependence: Strongly advised to quit smoking. Patient is wanting to get prescription for nicotine patch. Qualifiers: Nicotine product type: cigarettes Substance use status: other nicotine-induced disorder Qualified Code(s): F17.218 - Nicotine dependence, cigarettes, with other nicotine-induced disorders Plan Patient may be on a tapering dose of amiodarone, 40 mg p.o. twice daily for 1 week followed by 400 mg daily for 1 week followed by 200 mg p.o. daily I also contacted Dr. Tijerina at the [facility]. This patient may benefit from a second RF ablation for atrial fibrillation. Dr. Tijerina's office will contact the patient to make the arrangements for the same. If she continues to remain stable, may be discharged home today. Patient has an appointment to be seen in the office next week. Advised to keep the appointment. Attestations Medical Necessity Statement*: Possible discharge home today Coding Level of Care Code 30560 Diagnoses Atrial fibrillation with rapid ventricular response I48.91 Peripheral arterial occlusive disease I77.9 Benign essential HTN I10 Acute diastolic congestive heart failure I50.31 Heart failure type: diastolic Heart failure chronicity: acute Cigarette nicotine dependence with other nicotine-induced disorder F17.218 Nicotine product type: cigarettes Substance use status: other nicotine-induced disorder
--- NOTE | 2023-07-10 14:17 | P.DS_ITS ---
Discharge Providers Date of Admission: 07/06/23 15:53 Date of Discharge: July 10, 2023 Attending Provider at Admission: Aj Mcgowan MD Attending Provider at Discharge: Roldan Nino Primary Care Provider: Malachi Haque DO Diagnoses at Discharge Discharge Diagnosis (1) Atrial fibrillation with rapid ventricular response: Status: Acute (2) Peripheral arterial occlusive disease: Status: Acute (3) Benign essential HTN: Status: Acute (4) Congestive heart failure: Status: Acute Qualifiers: Heart failure chronicity: acute Heart failure type: diastolic Qualified Code(s): I50.31 - Acute diastolic (congestive) heart failure (5) Nicotine dependence: Status: Acute Qualifiers: Nicotine product type: cigarettes Substance use status: other nicotine- induced disorder Qualified Code(s): F17.218 - Nicotine dependence, cigarettes, with other nicotine-induced disorders Reason for Visit Reason for Visit: dizzy, afib Hospital Course Hospital Course Pleasant 72-year-old lady with history of chronic atrial fibrillation, past ablation, cardioversion, at home on metoprolol, Eliquis, was admitted with atrial fibrillation with RVR, did not respond to metoprolol, Cardizem, was s tarted on amiodarone drip, still with persistent tachycardia, underwent DC cardioversion after consultation by cardiology, remains in sinus rhythm 50s-60s, is referred for follow-up with Dr. Tijerina in [place] for reassessment for reablation. Continues on amiodarone at discharge, per cardiology recommendation 400 mg twice daily for 1 week, then 400 mg daily for 1 week, then 200 mg daily. So far has responded well to nicotine patch and intends on quitting smoking. He replacement prescribed at discharge with 5-minute discussion on smoking cessation. Please follow-up and support. Physical Exam Narrative: Sitting up at edge of bed. Visited by her son. Const: COMMON NORMALS: patient oriented x3 and alert GENERAL APPEARANCE: cooperative ORIENTATION/CONSCIOUSNESS: Yes awake OTHER: In good spirits. HENMT: COMMON NORMALS: oropharynx normal Neck/C-Spine: COMMON NORMALS: no JVD Resp: COMMON NORMALS: normal respiratory effort and clear to auscultation bila terally AUSCULTATION: clear to auscultation bilaterally Cardio: COMMON NORMALS: no JVD, S1 normal heart sound present, S2 normal heart sound present and No murmurs present (Cardio) RATE: tachycardic RHYTHM: abnormal rhythm irregularly irregular HEART SOUNDS: S1 normal heart sound present and S2 normal heart sound present GI: COMMON NORMALS: Normal to inspection, nondistended, normoactive bowel sounds present, Soft to palpation and non-tender PALPATION: Yes Soft to palpation Extremity: COMMON NORMALS: no joint enlargement and no pedal edema Neuro: COMMON NORMALS: patient oriented x3 and moves all extremities SENSORIUM/ORIENTATION: Yes alert Skin: COMMON NORMALS: no rashes or lesions noted GENERAL SKIN EXAM: no rashes or lesions noted Discharge Data Studies Completed and Pending Completed Studies During Hospitalization Category Date Time Status XR chest 1V portable [id number] Stat Exams 07/05/23 09:12 Completed CV. echo complete* [id number] Routine Ultrasound 07/08/23 06:00 Completed Pending at discharge Category Date Time Status Basic Metabolic Panel AM LABS Lab 07/11/23 04:00 Ordered Laboratory Results WBC 6.25 10^3/uL (3.29-11.43) 07/08/23 05:17 RBC 4.54 10^6/uL (3.85-5.65) 07/08/23 05:17 Hgb 13.50 g/dL (11.27-16.99) 07/08/23 05:17 Hct 43.2 % (36-47) 07/08/23 05:17 MCV 95.2 fl (85-98) 07/08/23 05:17 MCH 29.7 pg (27-33) 07/08/23 05:17 MCHC 31.3 g/dL (30-55) 07/08/23 05:17 RDW 13.4 % (12.1-15.1) 07/08/23 05:17 Plt Count 189 10^3/cmm (157-399) 07/08/23 05:17 MPV 11.7 fL (7.4-10.4) H 07/08/23 05:17 Neut % (Auto) 55.8 % 07/08/23 05:17 Lymph % (Auto) 26.4 % 07/08/23 05:17 [place] % (Auto) 13.0 % 07/08/23 05:17 Eos % (Auto) 4.0 % 07/08/23 05:17 Baso % (Auto) 0.6 % 07/08/23 05:17 Neut # (Auto) 3.49 10^3/uL (1.8-7.7) 07/08/23 05:17 Lymph # (Auto) 1.7 10^3/uL (0.8-4.8) 07/08/23 05:17 [place] # (Auto) 0.8 10^3/uL (0.2-0.9) 07/08/23 05:17 Eos # (Auto) 0.3 10^3/uL (0.0-0.8) 07/08/23 05:17 Baso # (Auto) 0.0 10^3/uL (0.0-0.1) 07/08/23 05:17 Nucleated RBC % (auto) 0 % 07/08/23 05:17 Nucleated RBCs # 0.0 /100WBC 07/08/23 05:17 Sodium 141 mmol/L (136-145) 07/10/23 03:20 Potassium 4.3 mmol/L (3.5-5.1) 07/10/23 03:20 Chloride 107 mmol/L (98-107) 07/10/23 03:20 Carbon Dioxide 24 mmol/L (22-29) 07/10/23 03:20 Anion Gap 14.3 (5-19) 07/10/23 03:20 BUN 15 mg/dL (8-23) 07/10/23 03:20 Creatinine 0.8 mg/dL (0.5-0.9) 07/10/23 03:20 GFR Calculation Not Reportable 07/10/23 03:20 Glucose 103 mg/dL (65-115) 07/10/23 03:20 Estimat Average Glucose 117 07/07/23 01:17 Hemoglobin A1c 5.7 % (4.0-6.0) 07/07/23 01:17 Calculated Osmolality 293 mOsm/kg (285-295) 07/10/23 03:20 Calcium 9.2 mg/dL (8.5-10.5) 07/10/23 03:20 Phosphorus 3.3 mg/dL (2.5-4.5) 07/09/23 05:05 Magnesium 2.2 mg/dL (1.7-2.3) 07/09/23 05:05 Total Bilirubin 0.3 mg/dL (0.15-1.2) 07/08/23 05:17 AST 16 U/L (0-32) 07/08/23 05:17 ALT 13 U/L (0-33) 07/08/23 05:17 Alkaline Phosphatase 87 U/L (35-105) 07/08/23 05:17 Troponin T Baseline < 6 ng/L (0-10) 07/05/23 09:17 Troponin T 120 Minute 6.29 ng/L (0-10) 07/05/23 11:06 Delta Troponin T 0.06301 ABS# (0-10) 07/05/23 11:06 Troponin T Hi Sens 6Hr 6.00 ng/L (0-10) 07/05/23 15:38 Troponin T Hi Sens 6Hr Delta 0.23113 ng/L (0-12) 07/05/23 15:38 Total Protein 6.1 g/dL (6.6-8.7) L 07/08/23 05:17 Albumin 4.0 g/dL (3.5-5.2) 07/08/23 05:17 Globulin 2.1 g/dL (1.3-4.6) 07/08/23 05:17 Triglycerides 96 mg/dL (0-150) 07/07/23 01:17 Cholesterol 201 mg/dL (0-200) H 07/07/23 01:17 LDL Cholesterol, Calc 133 mg/dL (50-129) H 07/07/23 01:17 Total VLDL Cholesterol 19 mg/dL (0-30) 07/07/23 01:17 HDL Cholesterol 49 mg/dL (60-100) L 07/07/23 01:17 Cholesterol/HDL Ratio 4.10 mg/dL (0.0-4.40) 07/07/23 01:17 Lipase 20 U/L (13-60) 07/05/23 09:17 Vitamin B12 2000 pg/mL (232-1245) H 07/06/23 03:25 Folate > 20.0 ng/mL (4.8-37.3) 07/07/23 01:17 TSH 1.57 uIU/mL (0.27-4.20) 07/06/23 03:25 Urine Color Yellow (Yellow) 07/05/23 10:01 Urine Appearance Clear (CLEAR) 07/05/23 10:01 Urine pH 6 (5-7) 07/05/23 10:01 Ur Specific Basom 1.020 (1.005-1.030) 07/05/23 10:01 Urine Protein Neg (Negative) 07/05/23 10:01 Urine Glucose (UA) Norm (Normal) 07/05/23 10:01 Urine Ketones Negative (Negative) 07/05/23 10:01 Urine Blood Neg (Negative) 07/05/23 10:01 Urine Nitrate Negative (Negative) 07/05/23 10:01 Urine Bilirubin Neg (Negative) 07/05/23 10:01 Urine Urobilinogen Norm mg/dL (Negative) 07/05/23 10:01 Ur Leukocyte Esterase Negative (Negative) 07/05/23 10:01 Vitals Last Vital Signs Temp 98.0 F 07/10/23 11:32 Pulse 56 L 07/10/23 11:32 Resp 16 07/10/23 11:32 BP 135/54 07/10/23 11:32 Pulse Ox 99 07/10/23 11:32 O2 Del Method Room Air 07/10/23 11:32 Discharge Plan Discharge Patient Disposition: Home Condition: Stable Prescriptions: New Pacerone 200 mg Tablet See Rx Instructions .ROUTE .COMPLEX Qty: 90 0RF Rx Instructions: 400 mg twice daily for 1 week followed by 400 mg daily for 1 week followed by 200 mg p.o. daily nicotine 21 mg/24 hr Patch 24 Hour 1 patch transdermal DAILY Qty: 90 0RF nicotine (polacrilex) 2 mg lozenge 2 mg buccal Q2H PRN (Reason: nicotine cravings) Qty: 108 0RF Continued Eliquis 5 mg tablet 5 mg PO BID loratadine [Claritin] 10 mg tablet 10 mg PO QAM albuterol sulfate 90 mcg/actuation HFA aerosol inhaler 2 puff inhalation Q6H PRN (Reason: shortness of breath or wheezing) vitamin B complex-vit B12 1,200 mcg/mL drops See Rx Instructions .ROUTE .COMPLEX Rx Instructions: two dropperful po daily cilostazol 100 mg tablet 100 mg PO BID Qty: 180 3RF metoprolol tartrate 25 mg tablet 50 mg PO BID Qty: 360 3RF multivitamin Tablet 1 tab PO QAM Vitamin C 1,000 mg Tablet 1,000 mg PO QAM sertraline 50 mg tablet 50 mg PO QAM Vitamin D3 25 mcg (1,000 unit) Capsule 25 mcg PO QAM Breo Ellipta 200-25 mcg/dose blister with device 2 ea INHALATION QAM Neuriva Plus 0.85 mg-200 mcg-1.2 mcg Tablet,Chewable 1 tab PO QAM Changed losartan 50 mg tablet 25 mg PO QAM Qty: 1 0RF Rx Instructions: Dose change only. After discharge hold 5 days, then resume at 25 mg daily. Hold if systolic blood pressure less than 100 or diastolic blood pressure less than 50. Discontinued ibuprofen 200 mg Tablet 800 mg PO Q6H PRN (Reason: Pain) Discharge Orders: Discharge Order (Routine); Ordered 07/10/23 Ordered By: Roldan Nino Referrals: Breezy Alegria [Other] - 4-7 days (Next week per appointment. ) Malachi Haque DO [Primary Care Provider] - 07/15/23 10:40 am Soren Duong MD [Physician] - 07/17/23 10:30 am Patient Instructions: Nicotine (Into the mouth) (Nicorette, Commit, [facility] Nicotine,..., Amiodarone (By mouth), Nicotine (Absorbed through the skin) (Nicoderm CQ, Nicoderm CQ..., Heart Failure (DC), A-fib (Atrial Fibrillation) (GEN), How to Stop Smoking (GEN), Cigarette Smoking and Your Health (GEN), CHF Stoplight, Opioid Safety Activity Restrictions/Additional Instructions: Please follow-up with Dr. Tijerina as per discussion with Dr. Duong with appointment next week. Follow-up with Dr. Duong in office. Continue amiodarone. Follow-up with your primary provider for monitoring for any amiodarone associated adverse effects including adverse effects, eyes, thyroid, lungs, liver. Monitor heart rate, blood pressure 3 times daily. Hold losartan for 5 days, then resume at reduced dose 25 mg daily. Hold if systolic blood pressure less than 100 or diastolic blood pressure less than 50. Return to hospital in case of worsening or new concerning symptoms. Discharge Attestations Time Spent in Discharge Care*: greater than 30 min Quality Metrics Clinical Quality Measures [ No reported AMI, CVA or VTE this stay] Coding Level of Care Code 91925 Total time (in minutes) for Discharge: 40 Diagnoses Atrial fibrillation with rapid ventricular response I48.91 Peripheral arterial occlusive disease I77.9 Benign essential HTN I10 Acute diastolic congestive heart failure I50.31 Heart failure chronicity: acute Heart failure type: diastolic Cigarette nicotine dependence with other nicotine-induced disorder F17.218 Nicotine product type: cigarettes Substance use status: other nicotine-induced disorder
[2023-07-10 14:36] VITALS: BP 144/48; PULSE 56; RESP 16; TEMP 36.7; O2SAT 99
== END 2023-07-10 15:04 | disposition home or self-care (01) | DRG 308 ==
LOC: ER 12:14 → CSU 13:55
PROVIDERS: Student in an Organized Health Care Education/Training Program; Admitting Provider Internal Medicine; Emergency Provider Family Medicine; PCP Electrodiagnostic Medicine; Visit Provider Internal Medicine
DX: I48.19 Other persistent atrial fibrillation (principal); I50.31 Acute diastolic (congestive) heart failure; Z79.01 Long term (current) use of anticoagulants; F32.A Depression, unspecified; J44.9 Chronic obstructive pulmonary disease, unspecified; F17.210 Nicotine dependence, cigarettes, uncomplicated; I73.9 Peripheral vascular disease, unspecified; I95.9 Hypotension, unspecified; R00.0 Tachycardia, unspecified; I11.0 Hypertensive heart disease with heart failure; F41.9 Anxiety disorder, unspecified
CPT/HCPCS: 36415; 71045; 80048; 80053; 80061; 81003; 82607; 82746; 83036; 83690; 83735; 84100; 84443; 84484; 85025; 93005; 93306; 96365; 96366; 96375; 96376; 99285; G0378; J0283; J1160; J2704; J3490

== ENCOUNTER → 2023-07-17 10:53 | Outpatient (BNVA) | payer MEDICARE, SELFPAY | PROVIDERS: PCP Electrodiagnostic Medicine; Visit Provider Nurse Practitioner Family | DX: R07.9 Chest pain, unspecified (principal); R00.1 Bradycardia, unspecified; I48.91 Unspecified atrial fibrillation; Z09 Encounter for follow-up examination after completed treatment for conditions other than malignant neoplasm; F17.210 Nicotine dependence, cigarettes, uncomplicated | CPT/HCPCS: 93005; 99213 ==

== ENCOUNTER → 2023-12-10 11:19 | Outpatient (BNVA) | payer MEDICARE, SELFPAY | PROVIDERS: PCP Electrodiagnostic Medicine; Visit Provider Nurse Practitioner Family | DX: I48.19 Other persistent atrial fibrillation (principal); I77.9 Disorder of arteries and arterioles, unspecified; F17.210 Nicotine dependence, cigarettes, uncomplicated; Z79.01 Long term (current) use of anticoagulants | CPT/HCPCS: 99214 ==

== ENCOUNTER 2023-12-26 08:54 | Outpatient (CLI) | payer MEDICARE, SELFPAY ==
--- NOTE | 2023-12-26 | ECG_ITS ---
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 Interpretive Statements NAME OF STUDY: LEXISCAN SESTAMIBI STRESS TEST INDICATION: Unstable Angina PROCEDURE: At the baseline, the EKG revealed sinus bradycardia with giant T wave inversion in lead II, 3, aVF, V3 to V6. The baseline heart was 47 bpm with a blood pressue of 148/60 mm of Hg Lexiscan was infused over a period of 20 seconds. A total of 0.4 milligrams of Lexiscan was infused. The stress phase was continued for a total of 5 minutes. Heart rate at the end of the stress phase was 57 bpm with a blood pressure 126/52 mm of Hg. The EKG at the peak infusion revealed no significant changes. Sestamibi was injected 20 seconds after the Lexiscan infusion. Heart rate at the end of the recovery phase was 58 bpm with a blood pressure of 139/52 mm of Hg. CONCLUSION: 1. No significant EKG changes with the LexiScan infusion 2. No LexiScan induced chest pain or cardiac arrhythmia 3. Normal blood pressure and heart rate response 4. Sestamibi/sestamibi perfusion scan pending; see separate report. Electronically Signed On 12-30-2023 22:44:16 CDT by Soren Duong M.D. [id number]
[2023-12-26 09:30] VITALS: BMI 29.5
--- NOTE | 2023-12-26 09:46 | NMCV_ITS ---
NM gordo perf SPECT r/s* [id number] Priyanka Roberts Age: 73 Gender: F : 1950 Exam Date: 12/26/2023 10:09 Ordering Phys: Doni Lovell MD Technologist: DARELL Bergeron Exam Location: [facility] Indications: ANGINA PECTORIS STRESS TEST Please see separate stress test report in [facility] for full findings IMAGE PROTOCOL Rest/Stress 1 Lexiscan Day Radiopharmaceutical Dose (mCi) Administration Site Administered by Rest: Tc-99m 10.9 IV DARELL Quach Sestamibi Stress:Tc-99m 33.0 IV DARELL Quach Sestamibi Rest: 26-Dec-2023 60 Discovery 630 Stress: 26-Dec-2023 30 Discovery 630 0.4mg Lexiscan. Supine position only as patient was unable to lay prone. SPECT RESULTS Technical Quality: Excellent Raw Data Analysis: Normal Image Corrections: No attenuation or motion correction applied Summed Stress Score: 0 Summed Rest Score: 0 Summed Difference Score: 0 PERFUSION FINDINGS Fairly uniform myocardial tracer uptake with no significant perfusion normalities FUNCTIONAL RESULTS (calculated via Gated SPECT) Stress Image LV EF (%): 70 Stress EDV (mL):102 TID: 1.06 Stress ESV (mL):31 FUNCTIONAL FINDINGS: Segmental wall motion analysis revealing no gross wall motion abnormalities IMPRESSIONS 1. Unremarkable Myocardial perfusion imaging 2. Normal LV ejection fraction of 70% 3. LV wall motion analysis revealing no gross wall motion abnormalities. 4. Normal LV volume Low probability for coronary ischemia, based on the above findings Dr Soren Duong MD FAC (Electronically Signed) Final Date: 27 Dec 2023 08:22 S
[2023-12-26] MEDS: regadenoson 0.4 Mg/5 ml Syringe 0.400000000000000022 MG IVP (10:50)
[2023-12-26 11:07] VITALS: BP 145/65; PULSE 77
== END 2023-12-26 08:55 | disposition home or self-care (01) ==
PROVIDERS: PCP Electrodiagnostic Medicine; Visit Provider Internal Medicine
DX: I20.89 Other forms of angina pectoris (principal)
CPT/HCPCS: 36415; 78452; 93017; 96374; A9500; J2785

== ENCOUNTER 2023-12-27 11:52 | Outpatient (CLI) | payer MEDICARE, SELFPAY ==
--- NOTE | 2023-12-27 12:00 | USCV_ITS ---
Armando Priyanka Age: 73 Gender: F : 1950 Exam Date: 12/27/2023 12:09 Ordering Phys: Yanci Nix Technologist: Exam [place] [facility] [place] Indication: PAIN FINDINGS Resting SHREYA is 1.07 on the right and 0.96 on the left The immediate postexercise SHREYA of 0.86 on the right and 0.73 on the left CONCLUSIONS Features suggesting mild peripheral artery disease on the right and moderate peripheral artery disease on the left Dr Soren Duong MD [facility] (Electronically Signed) Final Date: 27 Dec 2023 23:54 S
== END 2023-12-27 11:53 | disposition home or self-care (01) ==
LOC: RAD 11:52
PROVIDERS: PCP Electrodiagnostic Medicine; Visit Provider Nurse Practitioner Family
DX: I77.9 Disorder of arteries and arterioles, unspecified (principal); M79.604 Pain in right leg; M79.605 Pain in left leg; R06.02 Shortness of breath
CPT/HCPCS: 93922

== ENCOUNTER 2024-01-17 14:02 | Outpatient (CLI) | payer MEDICARE, SELFPAY ==
--- NOTE | 2024-01-17 14:08 | MR_ITS ---
WS: [id number] MRI RIGHT KNEE HISTORY: DERANGEMENT OF MEDIAL MENISCUS OF KNEE COMPARISON: Radiograph 12/13/2023 Anterior cruciate ligament: Intact. Posterior cruciate ligament: Intact. Medial collateral ligament: There is a small amount of edema in the central medial collateral ligamen t at the level of the femoral condyle. Mild edema surrounding the ligament greatest below the knee isabella int. Posterior lateral corner structures: Intact. Medial menisci: Horizontal tear posterior horn extends to the inferior articular surface. There is al so abnormal signal extending towards the meniscal root from degeneration and a tear extending towards the free edge. Anterior horn is normal. Lateral meniscus: Intrasubstance degeneration posterior horn. There is a tear in the posterior horn t hat extends to the inferior articular surface. Extensor mechanism: Distal quadriceps tendon and patellar tendons are intact. Fluid and soft tissue: Moderate suprapatellar joint effusion. No Ratliff's cyst. Osseous and articular structures: Patellofemoral compartment: Mild narrowing of the patellofemoral joint space. No marrow edema. Medial compartment: Moderate narrowing the medial compartment. Moderate diffuse chondromalacia. Full- thickness cartilage defect along the weightbearing surface of the femoral condyle. There is additiona l marrow edema involving the medial tibial plateau. Lateral compartment: Mild narrowing of the lateral compartment with mild diffuse chondromalacia. No f ractures or marrow edema. MR/MR knee RT wo con* [id number] IMPRESSION: 1. Focal minimal intrasubstance tear of the MCL with associated sprain. 2. Horizontal tear posterior horn medial meniscus extends to the inferior mayte cular surface towards the meniscal root and free edge. 3. Simple horizontal tear posterior horn lateral meniscus. 4. Medial compartment moderate narrowing with diffuse chondromalacia with a mo re focal cartilage defect along the weightbearing surface of the femoral condyl e. 5. Marrow edema in the medial tibial plateau. 6. Mild narrowing of the lateral compartment with mild chondromalacia. 7. Moderate joint effusion.
== END 2024-01-17 14:03 | disposition home or self-care (01) ==
LOC: RAD 14:04
PROVIDERS: PCP Electrodiagnostic Medicine; Visit Provider Electrodiagnostic Medicine
DX: M23.221 Derangement of posterior horn of medial meniscus due to old tear or injury, right knee (principal); M94.261 Chondromalacia, right knee; S83.412A Sprain of medial collateral ligament of left knee, initial encounter
CPT/HCPCS: 73721

== ENCOUNTER 2024-01-24 15:35 | Outpatient (CLI) | payer MEDICARE, SELFPAY ==
--- NOTE | 2024-01-24 16:00 | USCV_ITS ---
Priyanka Roberts Age: 73 Gender: F : 1950 Exam Date: 01/24/2024 15:49 Ordering Phys: Yanci Nix Technologist: LALO [place] [facility] [place]: Claudication Risk Factors: Previous Vascular Surgery: RIGHT LEFT BP: 130.0 / 59.00 BP: 132.0/ 43.00 0 0 Waveform Velocity (cm/s) Velocity (cm/s) Waveform Triphasic 167.3 Iliac Prox 70.3 Monophasic Triphasic 152.1 Iliac Mid 75.2 Monophasic Triphasic Iliac Distal Monophasic 130.2 81.9 Triphasic 122.0 REIMBURSEMENT MANAGER 64.0 Monophasic Triphasic 231.0 SFA Prox 98.0 Monophasic Triphasic 148.0 SFA Mid 80.0 Monophasic Triphasic 146.0 SFA Dist 75.0 Monophasic Triphasic 88.0 POP 42.0 Monophasic Triphasic 66.0 PAYROLL SPECIALIST 30.0 Monophasic Triphasic 69.0 DPA 32.0 Monophasic 0.8 SHREYA 0.7 FINDINGS Mild to moderate diffuse plaque in the iliac, femoral and popliteal arteries bilaterally. Resting SHREYA of 0.7 on the left and 0.8 on the left right side. CONCLUSIONS 1. Abnormal resting SHREYA bilaterally suggesting mild peripheral artery disease on the right and mild to moderate peripheral artery disease in the left. 2. Mild to moderate diffuse plaques in the iliac, femoral and popliteal arteries bilaterally Compared to the study from 05/08/2022, there is significant improvement of the SHREYA on the left side(improved from 0.4 to 0.7) Dr Soren Duong MD [facility] (Electronically Signed) Final Date: 27 January 2024 22:34 S
== END 2024-01-24 15:36 | disposition home or self-care (01) ==
LOC: RAD 15:35
PROVIDERS: PCP Electrodiagnostic Medicine; Visit Provider Nurse Practitioner Family
DX: I48.19 Other persistent atrial fibrillation (principal); I20.89 Other forms of angina pectoris; I70.213 Atherosclerosis of native arteries of extremities with intermittent claudication, bilateral legs
CPT/HCPCS: 93925

== ENCOUNTER → 2024-05-14 12:00 | Outpatient (BNVA) | payer MEDICARE, SELFPAY | PROVIDERS: PCP Electrodiagnostic Medicine; Visit Provider Internal Medicine Cardiovascular Disease | DX: R06.02 Shortness of breath (principal); I49.9 Cardiac arrhythmia, unspecified | CPT/HCPCS: 36415; 80048; 83880; 99214 ==

== ENCOUNTER → 2024-12-24 14:01 | Outpatient (BNVA) | payer MEDICARE, SELFPAY | PROVIDERS: PCP Electrodiagnostic Medicine; Visit Provider Internal Medicine Cardiovascular Disease | DX: I48.19 Other persistent atrial fibrillation (principal); Z79.01 Long term (current) use of anticoagulants; I77.9 Disorder of arteries and arterioles, unspecified; I11.0 Hypertensive heart disease with heart failure; I50.31 Acute diastolic (congestive) heart failure; R00.1 Bradycardia, unspecified; F17.210 Nicotine dependence, cigarettes, uncomplicated | CPT/HCPCS: 99214 ==

== ENCOUNTER 2025-05-20 10:15 | Outpatient (CLI) | payer MEDICARE, SELFPAY ==
--- NOTE | 2025-05-20 10:25 | USR_ITS ---
PROCEDURE INFORMATION: Exam: US Bilateral Noninvasive Physiologic Study of the Lower Extremity Arteries, Limited Exam date and time: 05/20/2025 10:32 AM Age: 74 years old Clinical indication: Pain; Leg, upper and leg, lower; Bilateral; Additional info: Peripheral vascular disease, unspecified TECHNIQUE: Imaging protocol: Bilateral Limited bilateral noninvasive physiologic studies of lower extremity arteries. Waveforms were obtained and evaluated. Images were documented and archived. Exam is limited. COMPARISON: US CV ankle brachial index [id number] 12/27/2023 12:09 PM FINDINGS: Right Ankle-Brachial Index: 0.86 Left Ankle-Brachial Index: 0.73 US/CV ankle brachial index [id number] IMPRESSION: Decreased ABIs bilaterally correspond to [id number] peripheral arterial disease.
== END 2025-05-20 10:16 | disposition home or self-care (01) ==
LOC: RAD 10:17
PROVIDERS: PCP Electrodiagnostic Medicine; Visit Provider Electrodiagnostic Medicine
DX: I73.9 Peripheral vascular disease, unspecified (principal)
CPT/HCPCS: 93922